=== PATIENT | male | born 2000 | race Caucasian/White ===

== ENCOUNTER 2020-12-20 16:47 | Emergency (ER) | payer OTHER, SELFPAY ==
--- NOTE | ~2020-12-20 | XR_ITS ---
EXAMINATION: XR CHEST CLINICAL INFORMATION: Chest pain. Chest breath. COMPARISON: None TECHNIQUE: Frontal view of the chest was obtained. 5:32 PM FINDINGS: No significant abnormality is noted involving the heart, lungs, mediastinum, bony thorax or soft tissues. XR/XR chest 1V IMPRESSION: Unremarkable examination.
[2020-12-20 17:06] VITALS: BP 125/86; PULSE 100; RESP 20; TEMP 36.7; O2SAT 97; BMI 18.2
--- NOTE | 2020-12-20 17:12 | ECG_ITS ---
Test Reason : CHEST PAIN Blood Pressure : / mmHG Vent. Rate : 095 BPM Atrial Rate : 095 BPM P-R Int : 152 ms QRS Dur : 080 ms QT Int : 336 ms P-R-T Axes : 067 077 051 degrees QTc Int : 422 ms Normal sinus rhythm Normal ECG No previous ECGs available Referred By: Generic ED Physician Electronically Signed By:MITRA DODGE MD
[2020-12-20 17:54] LABS: MANUAL DIFF FLAG NO
[2020-12-20 17:56] LABS: Basophils Percent Auto 0.3 % (0-2); Eosinophils Percent Auto 0.3 % (0-4); Hematocrit 42.1 % (42-52); Hemoglobin 14.1 g/dl (14.0-18.0); Imm Gran Abs Auto 0.06 X10*3/uL (0.00-0.03); Imm Gran Pct Auto 0.4 % (0.0-0.4); Lymphocytes Absolute Auto 1.9 X10*3/uL (1.2-4.9); Lymphocytes Percent Auto 12.5 % (20-40); Mean Corpuscular HGB Conc 33.5 g/dl (31.0-36.0); Mean Corpuscular Hemoglobin 30.6 pg (27.0-33.0); Mean Corpuscular Volume 91.3 fL (80-98); Mean Platelet Volume 8.9 fL (9.4-12.4); Monocytes Absolute Auto 1.4 X10*3/uL (0.1-1.2); Monocytes Percent Auto 8.9 % (2-11); Neutrophils Absolute Auto 12.1 X10*3/uL (2.0-8.3); Neutrophils Percent Auto 77.6 % (45-73); Platelet Count 269 X10*3/uL (160-400); Red Blood Count 4.61 X10*6/uL (4.60-5.80); White Blood Count 15.6 X10*3/uL (4.8-10.8)
[2020-12-20 18:13] LABS: Anion Gap 11 (12-20); Blood Urea Nitrogen 12 mg/dL (9-16); Carbon Dioxide 25 mmol/L (22-29); Chloride 107 mmol/L (96-108); Creatinine Clr Calc Pharmacy 112.8; Estimated Glomerular Filt Rate > 60; Glucose Random 113 mg/dL (60-115); Potassium 4.2 mmol/L (3.3-5.1); Sodium 139 mmol/L (135-145)
[2020-12-20 18:19] LABS: Troponin-I High Sensitivity < 3.5 ng/L (<3.5-35.0)
[2020-12-20 22:17] VITALS: BP 126/75; PULSE 87; RESP 15; O2SAT 99
--- NOTE | 2020-12-20 22:41 | ED.CHESTPAIN ---
HPI - Chest Pain General Chief Complaint: Chest Pain Stated Complaint: sob,chest pain Time Seen by Provider: 12/20/20 22:34 History of Present Illness HPI narrative: Patient is a 20 year old male presents today having chest pain. It is mid chest. It is worse with certain movement. Positive coughing. Patient had his coronavirus vaccine last month. No vomiting. No diaphoresis. No leg swelling. No history of blood clots. No history of diabetes, hypertension, [place]. No history of recreational drug use. The pain is mid chest is sharp. There is a constant component. It is worse with certain position. Related Data Allergies Allergy/AdvReac Type Severity Reaction Status Date / Time No Known Allergies Allergy Verified 12/20/20 17:05 Review of Systems Review of Systems: Positive chest pain. No shortness of breath. No diaphoresis. No leg swelling. No travel. Yes all other systems are reviewed and are negative [facility] Past Medical History Attestation statement: The following information was validated with the patient. Medical History ADHD Anxiety Depression Panic attack Physical Exam Vital Signs: Vital Signs: Last Vital Signs Temp 98.1 F 12/20/20 17:06 Pulse 87 12/20/20 22:17 Resp 15 12/20/20 22:17 BP 126/75 12/20/20 22:17 Pulse Ox 99 12/20/20 22:17 Body Mass Index 18.2 Appearance: Alert. Oriented X3. No acute distress. Eyes: Pupils equal, round and reactive to light. ENT: Pharynx normal. Neck: Normal inspection. Neck supple. No lymph nodes noted. No crepitus CVS: Normal heart rate and rhythm. Pulses normal. Normal S1 and S2 Respiratory: No respiratory distress. Breath sounds normal. No Wheezing. No rales Abdomen: Soft and nontender. No rigidity. No distention. good BS x4 Skin: Skin warm and dry. Normal skin color. Normal skin turgor. Extremities: No lower extremity edema. Neurovascular intact to all extremities. No Lacerations. No Rash Neuro: Oriented X 3. No motor deficit. No sensory deficit. Moving all extermities. No slurred speech MDM - Chest Pain MDM Narrative Medical decision making narrative: well-appearing no acute distress. Patient's cardiac enzymes negative. Hemoglobin is normal at 14.1. Kidney functions are normal. Chest x-ray showed no focal infiltrate. No pneumothorax. No rib fracture. Will discharge patient home. Close follow-up on an outpatient basis. Differential Diagnosis Differential diagnosis: Likely fracture of rib, pneumothorax, atypical chest pain, st elevation myocardial infarction, costochondritis and chest pain Medical Records Data Attestation: I reviewed the patient's medical records. Lab Data Attestation: I reviewed the patient's lab results. Result diagrams: 12/20/20 17:46 12/20/20 17:46 Labs: Lab Results 12/20/20 12/20/20 12/20/20 Range/Units 17:46 17:46 17:46 WBC 15.6 H (4.8-10.8) X10*3/uL RBC 4.61 (4.60-5.80) X10*6/uL Hgb 14.1 (14.0-18.0) g/dl Hct 42.1 (42-52) % MCV 91.3 (80-98) fL MCH 30.6 (27.0-33.0) pg MCHC 33.5 (31.0-36.0) g/dl RDW 13.0 (11.0-16.0) % Plt Count 269 (160-400) X10*3/uL MPV 8.9 L (9.4-12.4) fL Immature Gran % (Auto) 0.4 (0.0-0.4) % Neut % (Auto) 77.6 H (45-73) % Lymph % (Auto) 12.5 L (20-40) % Bowie % (Auto) 8.9 (2-11) % Eos % (Auto) 0.3 (0-4) % Baso % (Auto) 0.3 (0-2) % Lymph # (Auto) 1.9 (1.2-4.9) X10*3/uL Bowie # (Auto) 1.4 H (0.1-1.2) X10*3/uL Eos # (Auto) 0.0 (0.0-0.4) X10*3/uL Baso # (Auto) 0.0 (0.0-0.2) X10*3/uL Abs Immat Gran (auto) 0.06 H (0.00-0.03) X10*3/uL Absolute Neuts (auto) 12.1 H (2.0-8.3) X10*3/uL Absolute Nucleated RBC 0.000 (0.0-0.012) X10*3/uL Nucleated RBC % (auto) 0.0 (0.0-0.2) /100WBC Sodium 139 (135-145) mmol/L Potassium 4.2 (3.3-5.1) mmol/L Chloride 107 (96-108) mmol/L Carbon Dioxide 25 (22-29) mmol/L Anion Gap 11 L (12-20) BUN 12 (9-16) mg/dL Creatinine 0.87 (0.5-1.4) mg/dL Estim Creat Clear Calc 112.8 Estimated GFR > 60 Random Glucose 113 (60-115) mg/dL Calcium 9.0 (8.4-10.2) mg/dL Troponin I High Sens < 3.5 (<3.5-35.0) ng/L
== END 2020-12-20 23:00 | disposition home or self-care (01) ==
PROVIDERS: Emergency Provider Emergency Medicine Emergency Medical Services; PCP Pediatrics
DX: R07.9 Chest pain, unspecified (principal)
CPT/HCPCS: 36415; 71045; 80048; 84484; 85025; 93005; 99283; 99284

== ENCOUNTER 2023-03-11 19:37 | Emergency (ER) | payer OTHER, SELFPAY ==
[2023-03-11 19:43] VITALS: BP 150/93; PULSE 109; RESP 20; TEMP 36.8; O2SAT 97; BMI 25.6
--- NOTE | 2023-03-11 19:49 | ED_ITS ---
HPI - General Adult General Chief complaint: General Medical Stated complaint: vomiting blood / sob Time Seen by Provider: 03/11/23 21:27 Source: patient Mode of arrival: ambulatory Limitations: no limitations History of Present Illness HPI narrative: Patient drinks alcohol almost every day last few times after drinking starts vomiting initially clear and then bright red blood last vomiting was yesterday after drinking no melena has some epigastric pain while vomiting none now , no history of any ulcer Related Data Previous Rx's Medication Instructions Recorded omeprazole 40 mg capsule,delayed 40 mg PO DAILY #30 caps 03/11/23 release sucralfate 1 gram tablet 1 g PO BID #60 tabs 03/11/23 Allergies Allergy/AdvReac Type Severity Reaction Status Date / Time No Known Allergies Allergy Verified 03/11/23 19:42 Review of Systems 2 Review of Systems: Yes all other systems are reviewed and are negative PMF Past Medical History Medical History ADHD Depression Anxiety Panic attack Social History Social History Alcohol intake: current Alcohol intake frequency: 3 or more drinks per day Alcohol type: beer and hard liquor Use of substances other than those prescribed or required for medical reasons: No Any prior treatment program specific to substance use: No Advance Directives: No Advance Directives Information Provided: No Physical Exam ED Vital Signs: Vital Signs - 24 hr 03/11/23 19:43 03/11/23 21:45 Temperature 98.2 F 98.4 F Pulse Rate 109 H 84 Respiratory Rate 20 18 Blood Pressure 150/93 H 143/97 H Pulse Oximetry 97 97 Oxygen Delivery Method Room Air Room Air BMI result Body Mass Index 25.6 Appearance: Alert. Oriented X3. No acute distress. Eyes: No pallor ENT: Pharynx normal. Oral Mucosa moist Neck: Normal inspection. Neck supple. CVS: Normal heart rate and rhythm. Pulses normal. Respiratory: No respiratory distress. Equal air entry bilateral, no wheezing/rales/rhonchi Abdomen: Soft and nontender. Bowel sounds are present, no mass palpable, no CVA tenderness Skin: Skin warm and dry. Normal skin color. Normal skin turgor. Extremities: No lower extremity edema. No calf tenderness Neuro: Oriented X 3. Course Course Course Narrative: RmE: 22 yold male presents to the ED for vomitting up blood after drinking alcohol yesterday. patient last vomitted yesterday. Patient presently is asymptomatic. labs ordered Medications Administered Discontinued Medications Generic Name Dose Route Start Last Admin Trade Name Sai PRN Reason Stop Dose Admin Al Hydroxide/Mg Hydroxide 30 ml 03/11/23 21:34 03/11/23 21:52 Magnesium Hydrox/Alum Hydrox 30 Ml Oral.Susp PO 03/11/23 21:35 30 ml ONCE ONE Administration Omeprazole 40 mg 03/11/23 21:34 03/11/23 21:52 Omeprazole 40 Mg Capsule.Dr GASPAR 03/11/23 21:35 40 mg ONCE ONE Administration Medical Decision Making Lab Data 03/11/23 20:59 03/11/23 20:58 Labs: Lab Results 03/11/23 03/11/23 Range/Units 20:58 20:59 WBC 7.9 (4.8-10.8) X10*3/uL RBC 5.00 (4.60-5.80) X10*6/uL Hgb 15.4 (14.0-18.0) g/dl Hct 43.7 (42.0-52.0) % MCV 87.4 (80.0-98.0) fL MCH 30.8 (27.0-33.0) pg MCHC 35.2 (31.0-36.0) g/dl RDW 12.3 (11.0-16.0) % Plt Count 328 (160-400) X10*3/uL MPV 8.7 L (9.4-12.4) fL Immature Gran % (Auto) 0.4 (0.0-0.4) % Neut % (Auto) 51.3 (45-73) % Lymph % (Auto) 37.7 (20-40) % Wagoner % (Auto) 9.1 (2-11) % Eos % (Auto) 1.1 (0-4) % Baso % (Auto) 0.4 (0-2) % Lymph # (Auto) 3.0 (1.2-4.9) X10*3/uL Wagoner # (Auto) 0.7 (0.1-1.2) X10*3/uL Eos # (Auto) 0.1 (0.0-0.4) X10*3/uL Baso # (Auto) 0.0 (0.0-0.2) X10*3/uL Abs Immat Gran (auto) 0.03 (0.00-0.03) X10*3/uL Absolute Neuts (auto) 4.0 (2.0-8.3) x10*3/uL Absolute Nucleated RBC 0.000 (0.0-0.012) X10*3/uL Nucleated RBC % (auto) 0.0 (0.0-0.2) /100WBC Sodium 139 (135-145) mmol/L Potassium 3.7 (3.3-5.1) mmol/L Chloride 105 (96-108) mmol/L Carbon Dioxide 24 (22-29) mmol/L Anion Gap 14 (12-20) BUN 12 (9-16) mg/dL Creatinine 1.00 (0.5-1.4) mg/dL Estim Creat Clear Calc 122.3 Estimated GFR > 60 Random Glucose 114 (60-115) mg/dL Calcium 9.3 (8.4-10.2) mg/dL Total Bilirubin 0.3 (0.0-1.0) mg/dL AST 82 H (5-37) U/L ALT 113 H (0-40) U/L Alkaline Phosphatase 92 (39-117) U/L Total Protein 7.6 (6.5-8.0) g/dL Albumin 4.5 (3.5-5.0) g/dL Lipase 16 (8-78) U/L Discharge Plan Discharge Clinical Impression: Acute alcoholic gastritis Patient Disposition: Home, Self-Care Instructions: Gastritis (ED), Abuse of Alcohol (ED) Additional Instructions: Stop drinking alcohol Take Prilosec daily and sucralfate before meals as needed for acid reflux Prescriptions: New omeprazole 40 mg capsule,delayed release(DR/EC) 40 mg PO DAILY Qty: 30 0RF sucralfate 1 gram tablet 1 g PO BID Qty: 60 0RF Stand Alone Forms: Work/School Release Interventions: ED Discharge Assessment Last Done: 03/11/23 22:12 Discharge Date/Time: 03/11/23 22:00
[2023-03-11 21:06] LABS: MANUAL DIFF FLAG NO
[2023-03-11 21:07] LABS: Basophils Percent Auto 0.4 % (0-2); Eosinophils Absolute Auto 0.1 X10*3/uL (0.0-0.4); Eosinophils Percent Auto 1.1 % (0-4); Hematocrit 43.7 % (42.0-52.0); Hemoglobin 15.4 g/dl (14.0-18.0); Imm Gran Abs Auto 0.03 X10*3/uL (0.00-0.03); Imm Gran Pct Auto 0.4 % (0.0-0.4); Lymphocytes Percent Auto 37.7 % (20-40); Mean Corpuscular HGB Conc 35.2 g/dl (31.0-36.0); Mean Corpuscular Hemoglobin 30.8 pg (27.0-33.0); Mean Corpuscular Volume 87.4 fL (80.0-98.0); Mean Platelet Volume 8.7 fL (9.4-12.4); Monocytes Absolute Auto 0.7 X10*3/uL (0.1-1.2); Monocytes Percent Auto 9.1 % (2-11); Neutrophils Percent Auto 51.3 % (45-73); Platelet Count 328 X10*3/uL (160-400); Red Cell Distribution Width 12.3 % (11.0-16.0); White Blood Count 7.9 X10*3/uL (4.8-10.8)
[2023-03-11 21:21] LABS: Alanine Aminotransferase 113 U/L (0-40); Albumin Level 4.5 g/dL (3.5-5.0); Alkaline Phosphatase 92 U/L (39-117); Anion Gap 14 (12-20); Aspartate Amino Transferase 82 U/L (5-37); Bilirubin Total 0.3 mg/dL (0.0-1.0); Blood Urea Nitrogen 12 mg/dL (9-16); Calcium 9.3 mg/dL (8.4-10.2); Carbon Dioxide 24 mmol/L (22-29); Chloride 105 mmol/L (96-108); Creatinine Clr Calc Pharmacy 122.3; Estimated Glomerular Filt Rate > 60; Glucose Random 114 mg/dL (60-115); Lipase 16 U/L (8-78); Potassium 3.7 mmol/L (3.3-5.1); Sodium 139 mmol/L (135-145); Total Protein 7.6 g/dL (6.5-8.0)
[2023-03-11 21:45] VITALS: BP 143/97; PULSE 84; RESP 18; TEMP 36.9; O2SAT 97
[2023-03-11] MEDS: Omeprazole 40 MG CAPSULE.DR PO (21:52)
[2023-03-11] MEDS: Magnesium Hydrox/Alum Hydrox 30 ML ORAL.SUSP PO (21:52)
== END 2023-03-11 22:00 | disposition home or self-care (01) ==
PROVIDERS: Physician Assistant; Emergency Provider Internal Medicine; PCP Internal Medicine
DX: K29.20 Alcoholic gastritis without bleeding (principal); R11.2 Nausea with vomiting, unspecified; Z79.899 Other long term (current) drug therapy
CPT/HCPCS: 36415; 80053; 83690; 85025; 99283; 99284

== ENCOUNTER 2025-06-07 19:51 | Inpatient (IN) | payer OTHER, SELFPAY ==
--- NOTE | 2025-06-07 | ECG_ITS ---
Test Reason : tachycardia Blood Pressure : */* mmHG Vent. Rate : 113 BPM Atrial Rate : 113 BPM P-R Int : 160 ms QRS Dur : 90 ms QT Int : 332 ms P-R-T Axes : 51 68 39 degrees QTcB Int : 455 ms Sinus tachycardia Otherwise normal ECG When compared with ECG of 20-Dec-2020 17:42, No significant change was found Referred By: Generic ED Physician Electronically Signed By: Oskar Carney
--- NOTE | ~2025-06-07 | CT_ITS ---
CLINICAL HISTORY: new sz CT Cervical Spine WO Contrast COMPARISON: None provided FINDINGS: No acute fracture or malalignment. Soft tissues are normal. Lung apices are clear. IMPRESSION: No acute findings. This document has been electronically signed by: Mc Tran MD on 06/08/2025 01:00:25
--- NOTE | ~2025-06-07 | CT_ITS ---
CLINICAL HISTORY: abd pain after using motrin 800 mg q hr x 8 CT Abdomen and Pelvis W Contrast COMPARISON: None provided FINDINGS: Patchy infiltrates in the bilateral lower lobes. Diffusely hypodense liver consistent with hepatic steatosis. Hepatomegaly. Normal spleen. Normal kidneys. Normal adrenal glands. Normal pancreas. No visible cholelithiasis. No biliary dilation. No evidence of bowel obstruction or colitis. Normal appendix. Unremarkable bladder. No ascites. No pneumoperitoneum. No lymphadenopathy. No acute fracture. No abdominal aortic aneurysm. IMPRESSION: No acute findings in the abdomen/pelvis. Bilateral lower lobe infiltrates. Nonemergent/incidental findings above. This document has been electronically signed by: Mc Tran MD on 06/08/2025 01:06:17
--- NOTE | ~2025-06-07 | CT_ITS ---
CLINICAL HISTORY: sz CT Head WO Contrast COMPARISON: None provided FINDINGS: A small portion of the uppermost head is excluded from the study. No acute intracranial hemorrhage. No evidence of acute infarction. No mass-effect or midline shift. No hydrocephalus. Visualized paranasal sinuses are clear. The mastoid air cells are clear. The visible orbits are normal. No acute fracture. Unremarkable soft tissues. IMPRESSION: No acute intracranial findings. This document has been electronically signed by: Mc Tran MD on 06/08/2025 01:03:18
[2025-06-07 19:54] VITALS: BP 160/90; PULSE 140; O2SAT 95; BMI 27.3
[2025-06-07 19:56] VITALS: BP 136/85; PULSE 125; RESP 22; TEMP 36.6; O2SAT 86
[2025-06-07 20:04] VITALS: O2SAT 91
--- NOTE | 2025-06-07 20:06 | ED.SEIZURE ---
HPI - Seizure General Chief Complaint: Seizure Stated Complaint: possible seizure Time Seen by Provider: 06/07/25 20:06 History of Present Illness HPI Narrative: patient is a 24-year-old male with a long history of alcohol use. Patient elected to stop drinking abruptly yesterday because his grandmother . He had toothache in the started to take ibuprofen 800 mg every hour for 7 hours straight. Afterward at approximately 19:00 patient had what appears to be a tonic-clonic seizure. Mom noticed a seizure. Patient was not awake at the time. Patient was drooling. Had rhythmic shaking movements. Then was somewhat very tired for the next 5-10 minutes. Then came back. Patient admits to drinking alcohol. There is no chest pain there is no diaphoresis there is diffuse abdominal pain. Patient is from home. No fever no chills. No coughing or congestion or upper respiratory symptoms. No diaphoresis. Related Data Previous Rx's ?Medication ?Instructions ?Recorded omeprazole 40 mg capsule,delayed 40 mg PO DAILY #30 caps 03/11/23 release sucralfate 1 gram tablet 1 g PO BID #60 tabs 03/11/23 Allergies Allergy/AdvReac Type Severity Reaction Status Date / Time No Known Allergies Allergy Verified 06/07/25 19:56 Review of Systems Review of Systems: Positive abdominal pain positive seizure Yes all other systems are reviewed and are negative [facility] Past Medical History Attestation statement: The following information was validated with the patient. Medical History ADHD Depression Anxiety Panic attack Social History Social History Alcohol intake: current Alcohol intake frequency: 3 or more drinks per day Alcohol type: beer and hard liquor Advance Directives: No Advance Directives Information Provided: Yes Physical Exam Exam: Exam: Appearance: Alert. Oriented X3. No acute distress. Eyes: Pupils equal, round and reactive to light. ENT: Pharynx normal. Neck: Normal inspection. Neck supple. No lymph nodes noted. No crepitus CVS: tachycardic Respiratory: No respiratory distress. Breath sounds normal. No Wheezing. No rales Abdomen: Soft and nontender. No rigidity. No distention. good BS x4 Skin: Skin warm and dry. Normal skin color. Normal skin turgor. Extremities: No lower extremity edema. Neurovascular intact to all extremities. No Lacerations. No Rash Neuro: Oriented X 3. No motor deficit. No sensory deficit. Moving all extermities. No slurred speech Vital Signs: Vital Signs: Last Vital Signs Temp 98.1 F 06/08/25 00:46 Pulse 114 H 06/08/25 00:46 Resp 20 06/08/25 00:46 BP 148/83 H 06/08/25 00:46 Pulse Ox 97 06/08/25 00:46 O2 Del Method Room Air 06/08/25 00:46 O2 Flow Rate 3 06/07/25 22:06 BMI result Body Mass Index 27.3 Medications Administered Discontinued Medications Generic Name Dose Route Start Last Admin Trade Name Dougieq PRN Reason Stop Dose Admin Diazepam 10 mg 06/07/25 21:35 06/07/25 22:08 Diazepam 5 Mg Tablet PO 06/07/25 21:36 10 mg ONCE ONE Administration Sodium Chloride 1,000 mls @ 999 mls/hr 06/07/25 21:30 06/08/25 00:46 Ns IV 06/07/25 22:30 Infused .Q1H1M THU Infusion Iohexol 85 ml 06/08/25 00:22 06/08/25 00:22 Iohexol 350 Mg/Ml 100 Ml Infus..Btl IV 06/08/25 00:23 85 ml ONCE ONE Administration Medical Decision Making Medical Decision Making [facility] Narrative: patient's presented today with an episode of possible seizure after stopping drinking for about 24 hours. Patient decided to take Motrin all day including 800 mg of ibuprofen every hour for 7 hours. He took it because of his toothache. Patient was then noted to have a possible seizure episode. He was unresponsive his mom noted shaking like behavior at that time patient was drooling. Had a postictal state. There is no tongue bite there is no incontinence. CT scan of the head was done grossly there is no evidence of bleeding no fracture. Patient had taken large amount of Motrin then had abdominal pain. CT scan of the abdomen pelvis by my interpretation is grossly negative. There is no obstruction there is no perforation. Patient is hemoglobin is 15.6. IV fluid was given. Benzo was given for alcohol withdrawal. Will likely admit for alcohol withdrawal syndrome after CAT scan returned. Differential Diagnosis Differential Diagnoses: The differential diagnosis associated with the presentation includes Intracranial bleed electrolyte disturbance alcohol intoxication seizure alcohol withdrawal seizure Admission/Observation Consideration of admission/observation: Escalation of care including admission/observation considered Lab Data MDM Lab Attestation statement: I reviewed the patient's lab results. 06/07/25 20:27 06/07/25 20:27 Labs: Lab Results 06/07/25 06/07/25 Range/Units 20:27 20:29 WBC 9.6 (4.8-10.8) X10*3/uL RBC 5.06 (4.60-5.80) X10*6/uL Hgb 15.6 (14.0-18.0) g/dl Hct 44.6 (42.0-52.0) % MCV 88.1 (80.0-98.0) fL MCH 30.8 (27.0-33.0) pg MCHC 35.0 (31.0-36.0) g/dl RDW 12.7 (11.0-16.0) % Plt Count 255 (160-400) X10*3/uL MPV 9.0 L (9.4-12.4) fL Immature Gran % (Auto) 0.5 H (0.0-0.4) % Neut % (Auto) 77.0 H (45-73) % Lymph % (Auto) 12.9 L (20-40) % Tate % (Auto) 9.1 (2-11) % Eos % (Auto) 0.2 (0-4) % Baso % (Auto) 0.3 (0-2) % Lymph # (Auto) 1.2 (1.2-4.9) X10*3/uL Tate # (Auto) 0.9 (0.1-1.2) X10*3/uL Eos # (Auto) 0.0 (0.0-0.4) X10*3/uL Baso # (Auto) 0.0 (0.0-0.2) X10*3/uL Abs Immat Gran (auto) 0.05 H (0.00-0.03) X10*3/uL Absolute Neuts (auto) 7.4 (2.0-8.3) x10*3/uL Absolute Nucleated RBC 0.000 (0.0-0.012) X10*3/uL Nucleated RBC % (auto) 0.0 (0.0-0.2) /100WBC Sodium 135 (135-145) mmol/L Potassium 4.0 (3.3-5.1) mmol/L Chloride 100 (96-108) mmol/L Carbon Dioxide 21 L (22-29) mmol/L Anion Gap 18 (12-20) BUN 6 L (9-16) mg/dL Creatinine 0.81 (0.5-1.4) mg/dL Estim Creat Clear Calc 148.4 Estimated GFR > 60 Random Glucose 118 H (60-115) mg/dL Calcium 9.4 (8.4-10.2) mg/dL Magnesium 2.1 (1.6-2.6) mg/dL Total Bilirubin 1.1 H (0.0-1.0) mg/dL AST 52 H (5-37) U/L ALT 35 (0-40) U/L Alkaline Phosphatase 86 (39-117) U/L Total Protein 7.4 (6.5-8.0) g/dL Albumin 5.0 (3.5-5.0) g/dL Ethyl Alcohol < 10 mg/dL COVID-19 (TERESSA) Negative (Negative) COVID-19 Clin Com See Note Influenza Type A (LAKSHMI) Negative (Negative) Influenza Type B (LAKSHMI) Negative (Negative) Influenza A & B Note See Note Independent Interpretation I performed an independent interpretation of an: EKG ( sinus heart rate is 110 [place] QRS QTC within normal limits) and CT Scan ( CT head negative CTA abdomen pelvis negative) Radiology Impression Discussion of test interpretation with radiology: I have reviewed the radiologist's reading. Chronic Conditions long history of alcohol use Social Determinants Patient?s care significantly limited by Social Determinants of Health including: Problems related to primary support group Critical Care Time Critical Care Time Critical Care Time: Yes Total Critical Care Time: 40 Attestation: I have personally provided 40 minutes of critical care time exclusive of time spent on separately billable procedures. Time includes review of lab data, radiology results, discussion with consultants, and monitoring for potential decompensation. Interventions were performed as documented above Discharge Plan Discharge Clinical Impression: Alcohol withdrawal seizure Patient Disposition: Admitted As Inpatient Print Language: Indonesian
[2025-06-07 20:08] VITALS: BP 144/92; PULSE 128; RESP 22; O2SAT 91
[2025-06-07 20:09] VITALS: O2SAT 94
--- NOTE | 2025-06-07 20:12 | PC.NURSE ---
PALMIRA score 7, MD Mancuso aware.
--- NOTE | 2025-06-07 20:13 | PC.NURSE ---
Pt PEDRO LUIS from home after pt had an episode of unresponsiveness and a possible seizure witnessed by family. Pt has been having left sided tooth pain and today has been taking 800 mg ibuprofen every hour x 7 hours. On arrival pt is noted to be tachycardic and hypoxic at 86%, no reports of SOB. Pt placed on O2 via NC and EKG/labs ordered. Pt states he is a daily drinker, approximately 4-5 drinks daily. Pt states his last drink was yesterday. CIWA scale completed, score of 7. Mancuso aware of pt status and CIWA score.
--- NOTE | 2025-06-07 20:15 | PC.NURSE ---
20 g IV left hand from EMS
[2025-06-07 20:31] LABS: MANUAL DIFF FLAG NO
[2025-06-07 20:32] LABS: Hematocrit 44.6 % (42.0-52.0); Hemoglobin 15.6 g/dl (14.0-18.0); Imm Gran Abs Auto 0.05 X10*3/uL (0.00-0.03); Imm Gran Pct Auto 0.5 % (0.0-0.4); Lymphocytes Absolute Auto 1.2 X10*3/uL (1.2-4.9); Mean Corpuscular HGB Conc 35.0 g/dl (31.0-36.0); Mean Corpuscular Hemoglobin 30.8 pg (27.0-33.0); Mean Corpuscular Volume 88.1 fL (80.0-98.0); NRBC Abs Auto 0.000 X10*3/uL (0.0-0.012); NRBC Pct Auto 0.0 /100WBC (0.0-0.2); Platelet Count 255 X10*3/uL (160-400); Red Blood Count 5.06 X10*6/uL (4.60-5.80); White Blood Count 9.6 X10*3/uL (4.8-10.8)
[2025-06-07 20:53] LABS: Alanine Aminotransferase 35 U/L (0-40); Albumin Level 5.0 g/dL (3.5-5.0); Alkaline Phosphatase 86 U/L (39-117); Anion Gap 18 (12-20); Aspartate Amino Transferase 52 U/L (5-37); Blood Urea Nitrogen 6 mg/dL (9-16); Calcium 9.4 mg/dL (8.4-10.2); Carbon Dioxide 21 mmol/L (22-29); Chloride 100 mmol/L (96-108); Creatinine Clr Calc Pharmacy 148.4; Estimated Glomerular Filt Rate > 60; Magnesium 2.1 mg/dL (1.6-2.6); Potassium 4.0 mmol/L (3.3-5.1); Sodium 135 mmol/L (135-145); Total Protein 7.4 g/dL (6.5-8.0)
[2025-06-07 20:53] LABS: COVID-19 Test Negative (Negative); IDNOW Serial# 08D9AD1C; IDNOW Serial# 58CA691E; Influenza B2 Negative (Negative)
--- OUTSIDE RECORDS SUMMARY | 2025-06-07 21:11 | XMS_ITS ---
Author Organization Unknown ENCOUNTERS Encounter Performer Location Date Diagnosis Diagnosis Status Emergency [address] [id number] Pre Admit [address] [id number] Emergency [address] [address] [id number] [facility] [address] [address] [id number] [facility] *Note: Encounters from your own facility or health system may be excluded. Allergies, Adverse Reactions, Alerts Allergen Type Severity Identification Date Medications Name Date Quantity Days Supplied GPI Number
[2025-06-07 22:06] VITALS: BP 143/81; PULSE 113; RESP 22; TEMP 36.4; O2SAT 98
[2025-06-08] VITALS (8 sets, daily range): BP systolic 114–148; BP diastolic 60–91; PULSE 88–114; RESP 16–20; TEMP 36.4–36.7; O2SAT 96–100; BMI 27.3
[2025-06-08] MEDS: iohexoL 350 MG/ML 100 ML INFUS..BTL 85 ML IV (00:22)
[2025-06-08] MEDS: PHENobarbitaL sodium 130 MG/ML IM ONCE 364 MG IM (01:49)
--- NOTE | 2025-06-08 02:42 | P.HPHOSP_ITS ---
History of Present Illness Date of Service: 06/08/25 Chief Complaint: Alcohol withdrawal seizure A 24-year-old male with a history of ADHD, depression, anxiety, panic attacks, alcohol use disorder, and alcohol-induced gastritis presented to the emergency department following a witnessed seizure. The event was observed by his mother and described by his father at the bedside, who reported that the patient developed muscle rigidity and involuntary jerking movements of the extremities, with no response to verbal stimuli. Postictally, he was noted to be fatigued for 5?10 minutes. The seizure was associated with oral trauma and drooling, and he experienced a single episode of hematemesis without subsequent episodes or complaints of abdominal or epigastric pain. They didn't report head trauma, as he fell onto his bed during the event. The patient endorsed tremors, but noted that his headache and visual hallucinations had resolved; he denied photophobia. He has no prior history of alcohol-related seizures, ICU admissions, or intubation. His last alcohol use was two days prior to presentation, with reported consumption of 10?11 drinks per day (whiskey and beer) over the past 1.5 weeks, precipitated by a recent breakup from a 6?7 month relationship. He also reported severe dental pain (9/10) at the site of a wisdom tooth, for which he took 800 mg of Motrin every hour for 7?8 hours on Sunday, though he denied dental discomfort at the time of evaluation. On arrival to the ED, he was hypoxic with an oxygen saturation of 86% on room air, requiring transient supplemental oxygen via nasal cannula. His current oxygen saturation is 97% on room air. He was tachypneic, with a peak respiratory rate of 20, and tachycardic, with an initial heart rate of 128 bpm, now 114 bpm. He remained afebrile. In the emergency department, he received diazepam 10 mg orally, Phenobarbital 364 mg IM x 1 dose, 1 L normal saline bolus, phenobarbital, azithromycin, and ceftriaxone. He is being admitted for management of alcohol withdrawal complicated by seizure. Diagnostic studies: Laboratory studies: Within normal limits except for bicarb 21 total bilirubin 1.1, AST 55. Lactic acid 1. CBC normal limits. Alcohol level less than 10. Influenza a/B and COVID-19 negative. Imaging: CT head without contrast: Negative for acute intracranial pathology CT abdomen and pelvis with IV contrast: Hepatic steatosis. Hepatomegaly. No acute findings in the abdomen/pelvis. Bilateral lower lobe infiltrates. ECG: Sinus tachycardia at 113 beats per minute, QTC 455 ms, no acute ischemic changes noted Substance use: Tobacco: 4-5 cigarettes per day; Recreation is reducible cessation from cannabis use over a year History obtained from the patient and father who joined later during the encounter. Verbal consent was obtained from the patient. [facility] Medical History ADHD Depression Anxiety Panic attack Social History Alcohol intake: current Alcohol intake frequency: 3 or more drinks per day Alcohol type: beer and hard liquor Advance Directives: No Advance Directives Information Provided: Yes Meds Allergies Allergy/AdvReac Type Severity Reaction Status Date / Time No Known Allergies Allergy Verified 06/07/25 19:56 Active Medications: Current Medications Acetaminophen (Acetaminophen 325 Mg Tablet) 650 mg PO Q6H PRN PRN Reason: Pain, Mild 1-3,fever,headache Last Admin: 06/08/25 02:32 Dose: 650 mg Calcium Carbonate (Calcium Carbonate 750 Mg Tab.Chew) 750 mg PO Q4H PRN PRN Reason: Heartburn Azithromycin 500 mg/ Sodium (Chloride) 250 mls @ 125 mls/hr IV ONCE ONE Stop: 06/08/25 03:11 Last Admin: 06/08/25 02:32 Dose: 125 mls/hr Thiamine HCl 100 mg/ Sodium (Chloride) 101 mls @ 202 mls/hr IV DAILY [facility] Dextrose/Sodium Chloride (D5ns) 1,000 mls @ 100 mls/hr IVCONT .Q10H [facility] Stop: 06/08/25 12:44 Magnesium Hydroxide (Milk Of Magnesia 30 Ml Oral.Susp) 30 ml PO DAILY PRN PRN Reason: Constipation Melatonin (Melatonin 3 Mg Tablet) 3 mg PO BEDTIME PRN PRN Reason: Insomnia Nicotine (Nicotine 7 Mg Patch.Td24) 7 mg TRANSDERMA DAILY [facility] Ondansetron HCl (Ondansetron Hcl 4 Mg/2 Ml Vial) 4 mg IVPUSH Q8H PRN PRN Reason: Nausea and Vomiting Pantoprazole Sodium (Pantoprazole Sodium 40 Mg/10 Ml Vial) 40 mg IVPUSH BID@0630,1630 [facility] Pharmacy Consult (Consult Rx Etoh Phenob Im/Po) 1 each MISCELLANE ONCE PRN; Protocol PRN Reason: Consult order Phenobarbital (Phenobarbital 30 Mg Tablet) 60 mg PO BID [facility]; Protocol Stop: 06/10/25 09:01 Phenobarbital (Phenobarbital 30 Mg Tablet) 30 mg PO BID [facility]; Protocol Stop: 06/12/25 09:01 Phenobarbital (Phenobarbital 30 Mg Tablet) 30 mg PO DAILY [facility]; Protocol Stop: 06/14/25 09:01 Phenobarbital Sodium (Phenobarbital Sodium 130 Mg/Ml Vial Im Q3hx2) 260 mg IM Q3H THU; Protocol Stop: 06/08/25 08:01 Sodium Chloride (0.9 % Sodium Chloride Flush 3 Ml Syringe) 3 ml IVFLUSH QSHIFT THU Sodium Chloride (0.9 % Sodium Chloride Flush 3 Ml Syringe) 3 ml IVFLUSH QSHIFT [facility] Physical Exam 2 Vital Signs and Narrative: Vital Signs: Last Vital Signs Temp 98.1 F 06/08/25 00:46 Pulse 114 H 06/08/25 00:46 Resp 20 06/08/25 00:46 BP 148/83 H 06/08/25 00:46 Pulse Ox 97 06/08/25 00:46 O2 Del Method Room Air 06/08/25 00:46 O2 Flow Rate 3 06/07/25 22:06 BMI result Body Mass Index 27.3 Appearance: Alert.? Oriented X3.? No acute distress.?Cooperative Eyes: Pupils equal, round and reactive to light. CVS:?tachycardic Respiratory: No respiratory distress.? Breath sounds normal. No Wheezing. No rales Abdomen: Soft and nontender. No rigidity. No distention. good BS x4 Skin: Skin warm and dry.? Normal skin color.? Normal skin turgor. Extremities: Upper extremity tremors Neuro: Oriented X 3.? No motor deficit.? No sensory deficit. No slurred speech Results Labs 06/08/25 03:56 06/08/25 03:56 Labs: Laboratory Results - last 24 hr 06/07/25 06/07/25 06/08/25 20:27 20:29 01:32 MCV 88.1 MCH 30.8 MCHC 35.0 RDW 12.7 Plt Count 255 MPV 9.0 L Immature Gran % (Auto) 0.5 H Neut % (Auto) 77.0 H Lymph % (Auto) 12.9 L [place] % (Auto) 9.1 Eos % (Auto) 0.2 Baso % (Auto) 0.3 Lymph # (Auto) 1.2 [place] # (Auto) 0.9 Eos # (Auto) 0.0 Baso # (Auto) 0.0 Abs Immat Gran (auto) 0.05 H Absolute Neuts (auto) 7.4 Absolute Nucleated RBC 0.000 Nucleated RBC % (auto) 0.0 Anion Gap 18 Estim Creat Clear Calc 148.4 Estimated GFR > 60 Random Glucose 118 H Lactic Acid 1.0 Calcium 9.4 Magnesium 2.1 Total Bilirubin 1.1 H AST 52 H ALT 35 Alkaline Phosphatase 86 Total Protein 7.4 Albumin 5.0 Ethyl Alcohol < 10 COVID-19 (TERESSA) Negative COVID-19 Clin Com See Note Influenza Type A (LAKSHMI) Negative Influenza Type B (LAKSHMI) Negative Influenza A & B Note See Note Assessment and Plan (1) Alcohol withdrawal seizure: Status: Acute (2) Alcohol use disorder: Status: Acute (3) Hematemesis: Status: Acute Plan Alcohol withdrawal seizure due to alcohol use disorder Tobacco use disorder -Initiated [facility] [place] Phenobarbital Alcohol Withdrawal Protocol -Seizure and aspiration precautions in place -Discussed cessation of alcohol and tobacco use with the patient; he expressed interest in quitting both -Addiction Medicine consulted for further management and support -Wernicke encephalopathy prophylaxis: Thiamine 100 mg PO/IV daily for 3?5 days -Monitor CIWA scores -Nicotine replacement therapy -Antiemetic as needed Hematemesis possible alcohol-induced gastritis -PPI IV BID -IVF -NPO, pending GI evaluation -Monitor blood glucose q6hrs whilst NPO -Gastroenterology consulted Possible aspiration, CT abdo demonstrated bilateral lower lobe infiltrates, the patient is afebrile and no leukocytosis -Abx x 1 dose administered in the ED -Monitor fever curve closely Mild non-anion gap metabolic acidosis, likely attributable to alcohol-related bicarbonate loss. NSAID-induced renal tubular acidosis is less likely, given that the chloride level is within normal limits. -BMP pending Pain: Tylenol as needed Medication reconciliation pending Code staus: Full VTE: Mechanical prophylaxis only; chemoprophylaxis is contraindicated because of concerns about hematemesis. The patient requires a two-midnight hospital stay for monitoring and management of alcohol withdrawal seizures related to alcohol use disorder. Quality Stroke Does the patient have a stroke diagnosis?: No VTE Prior VTE?: No VTE Risk Level:: Medical - moderate - high VTE Device Contraindication: N/A - Device Ordered VTE Drug Contraindication: Treatment Not Indicated
[2025-06-08] MEDS: PHENobarbitaL sodium 130 MG/ML VIAL IM Q3Hx2 260 MG IM ×2 (04:32→07:42)
[2025-06-08 04:42] LABS: MANUAL DIFF FLAG NO
[2025-06-08 04:43] LABS: Hematocrit 38.1 % (42.0-52.0); Hemoglobin 13.0 g/dl (14.0-18.0); Imm Gran Abs Auto 0.06 X10*3/uL (0.00-0.03); Imm Gran Pct Auto 0.4 % (0.0-0.4); Lymphocytes Absolute Auto 1.3 X10*3/uL (1.2-4.9); Mean Corpuscular HGB Conc 34.1 g/dl (31.0-36.0); Mean Corpuscular Hemoglobin 30.6 pg (27.0-33.0); Mean Corpuscular Volume 89.6 fL (80.0-98.0); NRBC Abs Auto 0.000 X10*3/uL (0.0-0.012); NRBC Pct Auto 0.0 /100WBC (0.0-0.2); Platelet Count 230 X10*3/uL (160-400); Red Blood Count 4.25 X10*6/uL (4.60-5.80); White Blood Count 14.8 X10*3/uL (4.8-10.8)
[2025-06-08 04:59] LABS: Alanine Aminotransferase 27 U/L (0-40); Albumin Level 3.9 g/dL (3.5-5.0); Alkaline Phosphatase 66 U/L (39-117); Anion Gap 14 (12-20); Aspartate Amino Transferase 45 U/L (5-37); Blood Urea Nitrogen 6 mg/dL (9-16); Calcium 7.8 mg/dL (8.4-10.2); Carbon Dioxide 19 mmol/L (22-29); Chloride 108 mmol/L (96-108); Creatinine Clr Calc Pharmacy 179.5; Estimated Glomerular Filt Rate > 60; Potassium 3.5 mmol/L (3.3-5.1); Sodium 137 mmol/L (135-145); Total Protein 5.8 g/dL (6.5-8.0)
--- NOTE | 2025-06-08 05:56 | HO.NURTONUR ---
Pt is a 24 y.o. male coming in from home after an episode of unresponsiveness and possible seizure. Pt has been having tooth pain and reports yesterday he took 800 mg ibuprofen every hour for 8 hours. PMH ADHD, anxiety, depression. On first assessment, pt reports he is a daily drinker. Reports having 9-10 drinks per day. Last drink 06/06. Pt's initial CIWA score 7. Preceding scores have only been as high as 8. Phenobarb protocol initiated. Pt also received IV fluids. Noted to be tachycardic in the 120s for most of the overnight shift. Imaging negative for acute findings. Labs remarkable for elevated WBC. Covid/flu neg. VSS, a&ox4. 20 g left hand. D5NS running at 100 mL/hr.
[2025-06-08 06:15] LABS: Glucose, Whole Blood 105 mg/dL (60-115)
--- NOTE | 2025-06-08 09:01 | PHA.MEDREC ---
Addendum entered by Marcio Purcell RPh 06/08/25 10:44: MED REC REVIEWED BY [facility] ED Original Note: Pharmacy Consult ? Medication Reconciliation Pharmacy has completed the medication reconciliation. Spoke with pt and father at bedside and they were able to confirm pt medications. Pt only taking/alternating Tylenol 325mg as needed for pain and ibuprofen 200mg as needed for pain; pt and father states pt was taking 800mg of Ibuprofen Q1H for ~6-7 hours on Sunday and is the reason why pt is here today.
[2025-06-08] MEDS: Nicotine 7 MG PATCH.TD24 TRANSDERMA (09:24)
[2025-06-08] MEDS: Thiamine HCL 100 MG in 0.9 % Sodium Chloride 100 ML 202 MG IV (09:24)
[2025-06-08 10:44] LABS: Acetaminophen LAB < 3 mcg/mL (<30); Salicylate < 5.0 mg/dL (15-30)
[2025-06-08 10:46] LABS: Alanine Aminotransferase 27 U/L (0-40); Albumin Level 4.0 g/dL (3.5-5.0); Alkaline Phosphatase 69 U/L (39-117); Anion Gap 8 (12-20); Aspartate Amino Transferase 39 U/L (5-37); Blood Urea Nitrogen 4 mg/dL (9-16); Calcium 8.0 mg/dL (8.4-10.2); Carbon Dioxide 23 mmol/L (22-29); Chloride 109 mmol/L (96-108); Creatinine Clr Calc Pharmacy 176.8; Estimated Glomerular Filt Rate > 60; Potassium 3.4 mmol/L (3.3-5.1); Sodium 137 mmol/L (135-145); Total Protein 5.8 g/dL (6.5-8.0)
--- NOTE | 2025-06-08 12:30 | MHC.CM.PN ---
Patient lives in a house with his Mother and Brother and he required no services nor DME [employer]. Home self care is Patient's goal and CM has initiated and will follow for dc planning. PCP is Dr. Jessie Alas and Mother will transport at dc.
--- NOTE | 2025-06-08 13:43 | HO.ADDICT_ITS ---
History of Present Illness Date of Service: 06/08/2025 Chief Complaint: Seizures Reason for Consult: AUD Sources of Information: patient interviewed and chart reviewed Additional Sources of Information: father -at bedside HPI Narrative: Patient is a 24 year old male with AUD, who presented to [facility] ED following concern of withdrawal seizure at home Per admission note, he reported drinking at least 10 drinks daily (both whiskey and venessa) and stopped abruptly 2 days prior to ED admission (06/05) In ED he was tachycardiac and started on phenobarbital protocol. T/w met with with patient in room 12 of main ED. Patient sleeping soundly. Appearing comfortable HR high 90swhile asleep Father at bedside, expressing concern for patients excessive alcohol use Patient woke during conversation and stated that he was feeling better in terms of withdrawal sx Denied nausea, anxiety. mild tremor noted remainder of substance use history deferred until tomorrow, to allow patient to continue resting Medical Evaluation Reviewed: Yes Review of Systems Constitutional: Reports as per HPI and Reports no additional constitutional complaints Diagnostics Vital Signs (24Hr): Vital Signs - 24 hr 06/07/25 19:56 06/07/25 20:04 06/07/25 20:08 Temperature 97.9 F Pulse Rate 125 H 128 H Respiratory Rate 22 H 22 H Blood Pressure 136/85 144/92 H Pulse Oximetry 86 L 91 L 91 L Oxygen Delivery Method Room Air Nasal Cannula Nasal Cannula Oxygen Flow Rate 2 3 06/07/25 20:09 06/07/25 22:06 06/08/25 00:46 Temperature 97.6 F 98.1 F Pulse Rate 113 H 114 H Respiratory Rate 22 H 20 Blood Pressure 143/81 H 148/83 H Pulse Oximetry 94 98 97 Oxygen Delivery Method Nasal Cannula Nasal Cannula Room Air Oxygen Flow Rate 3 3 06/08/25 04:20 06/08/25 06:10 06/08/25 10:14 Temperature 98.0 F Pulse Rate 99 95 92 Respiratory Rate 16 16 19 Blood Pressure 124/62 116/60 114/72 Pulse Oximetry 97 97 99 Oxygen Delivery Method Room Air Room Air Oxygen Flow Rate BMI result Body Mass Index 27.3 Labs 06/08/25 03:56 06/08/25 10:12 Labs: Laboratory Results - last 48 hr 06/07/25 06/07/25 06/08/25 20:27 20:29 01:32 WBC 9.6 RBC 5.06 Hgb 15.6 Hct 44.6 MCV 88.1 MCH 30.8 MCHC 35.0 RDW 12.7 Plt Count 255 MPV 9.0 L Immature Gran % (Auto) 0.5 H Neut % (Auto) 77.0 H Lymph % (Auto) 12.9 L [place] % (Auto) 9.1 Eos % (Auto) 0.2 Baso % (Auto) 0.3 Lymph # (Auto) 1.2 [place] # (Auto) 0.9 Eos # (Auto) 0.0 Baso # (Auto) 0.0 Abs Immat Gran (auto) 0.05 H Absolute Neuts (auto) 7.4 Absolute Nucleated RBC 0.000 Nucleated RBC % (auto) 0.0 Sodium 135 Potassium 4.0 Chloride 100 Carbon Dioxide 21 L Anion Gap 18 BUN 6 L Creatinine 0.81 Estim Creat Clear Calc 148.4 Estimated GFR > 60 POC Glucose Random Glucose 118 H Lactic Acid 1.0 Calcium 9.4 Magnesium 2.1 Total Bilirubin 1.1 H AST 52 H ALT 35 Alkaline Phosphatase 86 Total Protein 7.4 Albumin 5.0 Salicylates Acetaminophen Ethyl Alcohol < 10 COVID-19 ([facility]) Negative COVID-19 Clin Com See Note Influenza Type A (LAKSHMI) Negative Influenza Type B ([facility]KSHMI) Negative Influenza A & B Note See Note 06/08/25 06/08/25 06/08/25 03:56 06:12 10:12 WBC 14.8 H RBC 4.25 L Hgb 13.0 L Hct 38.1 L MCV 89.6 MCH 30.6 MCHC 34.1 RDW 12.8 Plt Count 230 MPV 9.7 Immature Gran % (Auto) 0.4 Neut % (Auto) 82.5 H Lymph % (Auto) 8.4 L [place] % (Auto) 8.4 Eos % (Auto) 0.1 Baso % (Auto) 0.2 Lymph # (Auto) 1.3 [place] # (Auto) 1.3 H Eos # (Auto) 0.0 Baso # (Auto) 0.0 Abs Immat Gran (auto) 0.06 H Absolute Neuts (auto) 12.2 H Absolute Nucleated RBC 0.000 Nucleated RBC % (auto) 0.0 Sodium 137 137 Potassium 3.5 3.4 Chloride 108 109 H Carbon Dioxide 19 L 23 Anion Gap 14 8 L BUN 6 L 4 L Creatinine 0.67 0.68 Estim Creat Clear Calc 179.5 176.8 Estimated GFR > 60 > 60 POC Glucose 105 Random Glucose 96 105 Lactic Acid Calcium 7.8 L D 8.0 L Magnesium Total Bilirubin 1.0 1.1 H AST 45 H 39 H ALT 27 27 Alkaline Phosphatase 66 69 Total Protein 5.8 L 5.8 L Albumin 3.9 4.0 Salicylates < 5.0 L Acetaminophen < 3 Ethyl Alcohol COVID-19 (TERESSA) COVID-19 Clin Com Influenza Type A (LAKSHMI) Influenza Type B (LAKSHMI) Influenza A & B Note Mental Status Exam Mental Status Exam Level of Consciousness: Awake Patient Behavior: Appropriate Affect Description: Calm Speech Pattern: Clear Thought Process: Intact Thought Content: positive for Intact Judgement: Good Medications Medications Current Medications Acetaminophen (Acetaminophen 325 Mg Tablet) 650 mg PO Q6H PRN PRN Reason: Pain, Mild 1-3,fever,headache Last Admin: 06/08/25 02:32 Dose: 650 mg Calcium Carbonate (Calcium Carbonate 750 Mg Tab.Chew) 750 mg PO Q4H PRN PRN Reason: Heartburn Thiamine HCl 100 mg/ Sodium (Chloride) 101 mls @ 202 mls/hr IV DAILY [facility] Last Infusion: 06/08/25 10:25 Dose: Infused Magnesium Hydroxide (Milk Of Magnesia 30 Ml Oral.Susp) 30 ml PO DAILY PRN PRN Reason: Constipation Melatonin (Melatonin 3 Mg Tablet) 3 mg PO BEDTIME PRN PRN Reason: Insomnia Nicotine (Nicotine 7 Mg Patch.Td24) 7 mg TRANSDERMA DAILY [facility] Last Admin: 06/08/25 09:24 Dose: 7 mg Ondansetron HCl (Ondansetron Hcl 4 Mg/2 Ml Vial) 4 mg IVPUSH Q8H PRN PRN Reason: Nausea and Vomiting Pantoprazole Sodium (Pantoprazole Sodium 40 Mg/10 Ml Vial) 40 mg IVPUSH BID@0630,1630 [facility] Last Admin: 06/08/25 07:16 Dose: 40 mg Pharmacy Consult (Consult Rx Etoh Phenob Im/Po) 1 each MISCELLANE ONCE PRN; Protocol PRN Reason: Consult order Phenobarbital (Phenobarbital 30 Mg Tablet) 60 mg PO BID [facility]; Protocol Stop: 06/10/25 09:01 Phenobarbital (Phenobarbital 30 Mg Tablet) 30 mg PO BID [facility]; Protocol Stop: 06/12/25 09:01 Phenobarbital (Phenobarbital 30 Mg Tablet) 30 mg PO DAILY [facility]U; Protocol Stop: 06/14/25 09:01 Sodium Chloride (0.9 % Sodium Chloride Flush 3 Ml Syringe) 3 ml IVFLUSH QSHIFT [facility] Last Admin: 06/08/25 07:44 Dose: Not Given Allergies Allergies Allergy/AdvReac Type Severity Reaction Status Date / Time No Known Allergies Allergy Verified 06/07/25 19:56 Assessment & Plan Assessment & Plan (1) Alcohol use disorder: Status: Acute Code(s): F10.90 - Alcohol use, unspecified, uncomplicated Assessment and Plan: * acute withdrawal--phenobarbital taper in place -continue thiamine and folic acid * will follow up in AM to discuss goals related to alcohol use and possible treatment options for that * Provided supportive listening to father at bedside--will provide resources for family support in AM Total time managing care of this patient today __40__ minutes. PMFSH Past Medical History Medical History ADHD Depression Anxiety Panic attack Social History Social History Alcohol intake: current Alcohol intake frequency: 3 or more drinks per day Alcohol type: beer and hard liquor Patient Tobacco Use Status: Current everyday Tobacco user Advance Directives: No Advance Directives Information Provided: Yes Nutrition Risks: No Nutritional Risk service: No
[2025-06-08] MEDS: 0.9 % Sodium Chloride Flush 3 ML SYRINGE IVFLUSH (17:04)
--- NOTE | 2025-06-08 17:31 | PM.EVENT ---
Event Note Date of Service: 06/08/25 Event Note: Patient seen and examined by hospitalist team, seen and examined again Denies any new complaints no nausea vomiting Still anxious and tremulous Physical exam and assessment and plan as per H and P note. clear liquid diet, monitor H&H, GI evaluation pending. Time Spent With Patient Time: Total time managing care of this patient today ____ minutes.
[2025-06-08 18:24] LABS: Hematocrit 41.7 % (42.0-52.0); Hemoglobin 14.4 g/dl (14.0-18.0)
[2025-06-08 23:16] LABS: Glucose, Whole Blood 93 mg/dL (60-115)
[2025-06-09] MEDS: 0.9 % Sodium Chloride Flush 3 ML SYRINGE IVFLUSH (00:04)
[2025-06-09 03:06] VITALS: BP 142/78; PULSE 90; RESP 18; TEMP 36.5; O2SAT 98
[2025-06-09 06:15] LABS: Glucose, Whole Blood 93 mg/dL (60-115)
[2025-06-09 07:27] VITALS: BP 124/90; PULSE 92; RESP 16; TEMP 36.1; O2SAT 99
[2025-06-09] MEDS: Nicotine 7 MG PATCH.TD24 TRANSDERMA ×2 (07:51→16:12)
[2025-06-09] MEDS: Thiamine HCL 100 MG in 0.9 % Sodium Chloride 100 ML 202 MG IV (07:51)
[2025-06-09 09:22] LABS: Hematocrit 44.5 % (42.0-52.0); Hemoglobin 15.1 g/dl (14.0-18.0); Mean Corpuscular HGB Conc 33.9 g/dl (31.0-36.0); Mean Corpuscular Hemoglobin 31.0 pg (27.0-33.0); Mean Corpuscular Volume 91.4 fL (80.0-98.0); NRBC Abs Auto 0.000 X10*3/uL (0.0-0.012); NRBC Pct Auto 0.0 /100WBC (0.0-0.2); Platelet Count 223 X10*3/uL (160-400); Red Blood Count 4.87 X10*6/uL (4.60-5.80); White Blood Count 8.7 X10*3/uL (4.8-10.8)
[2025-06-09 10:02] LABS: Anion Gap 12 (12-20); Blood Urea Nitrogen 3 mg/dL (9-16); Calcium 9.1 mg/dL (8.4-10.2); Carbon Dioxide 24 mmol/L (22-29); Chloride 105 mmol/L (96-108); Creatinine Clr Calc Pharmacy 169.3; Estimated Glomerular Filt Rate > 60; Potassium 4.2 mmol/L (3.3-5.1); Sodium 137 mmol/L (135-145)
[2025-06-09 11:09] VITALS: BP 145/84; PULSE 84; RESP 16; TEMP 36.1; O2SAT 99
--- NOTE | 2025-06-09 14:31 | HO.PM.IMPN ---
Subjective Subjective Date of Service: 06/09/25 Interval History: alcohol withdrawals ?gib Review of Systems No new episode of seizure or any coffee-ground or GI bleed Still tremulous and anxious Physical Exam Exam: Exam: Appearance: Alert.? Oriented X3.? Tongue bite area seems to be improving, speaking fine . cvs: rrr, [id number] . res: clear to auscultation ,no rhonchii or wheezing abd: no rebound or guarding ,nt, bs present. ext pulses present , no cyanosis neuro: axo3 , nonfocal. Vital Signs: Vital Signs: Last Vital Signs Temp 97.0 F 06/09/25 11:09 Pulse 84 06/09/25 11:09 Resp 16 06/09/25 11:09 BP 145/84 H 06/09/25 11:09 Pulse Ox 99 06/09/25 11:09 O2 Del Method Room Air 06/09/25 11:09 O2 Flow Rate 3 06/07/25 22:06 BMI result Body Mass Index 27.3 Objective Data Active Medications Acetaminophen (Acetaminophen 325 Mg Tablet) 650 mg PO Q6H PRN PRN Reason: Pain, Mild 1-3,fever,headache Last Admin: 06/08/25 20:59 Dose: 650 mg Documented By: LOKESH Calcium Carbonate (Calcium Carbonate 750 Mg Tab.Chew) 750 mg PO Q4H PRN PRN Reason: Heartburn Thiamine HCl 100 mg/ Sodium (Chloride) 101 mls @ 202 mls/hr IV DAILY [facility]S [facility] 234 BEDS AT THE [facility] Last Infusion: 06/09/25 08:26 Dose: Infused Documented By: CAROLA Magnesium Hydroxide (Milk Of Magnesia 30 Ml Oral.Susp) 30 ml PO DAILY PRN PRN Reason: Constipation Melatonin (Melatonin 3 Mg Tablet) 3 mg PO BEDTIME PRN PRN Reason: Insomnia Nicotine (Nicotine 7 Mg Patch.Td24) 7 mg TRANSDERMA DAILY [facility]S [facility]CLUDE 234 BEDS AT THE [facility] Last Admin: 06/09/25 07:51 Dose: 7 mg Documented By: SHOAIB Ondansetron HCl (Ondansetron Hcl 4 Mg/2 Ml Vial) 4 mg IVPUSH Q8H PRN PRN Reason: Nausea and Vomiting Pantoprazole Sodium (Pantoprazole Sodium 40 Mg/10 Ml Vial) 40 mg IVPUSH BID@0630,1630 [facility]S [facility]CLUDE 234 BEDS AT THE [facility] Last Admin: 06/09/25 06:09 Dose: 40 mg Documented By: LENNIE Pharmacy Consult (Consult Rx Etoh Phenob Im/Po) 1 each MISCELLANE ONCE PRN; Protocol PRN Reason: Consult order Phenobarbital (Phenobarbital 30 Mg Tablet) 60 mg PO BID [facility] 234 BEDS AT [facility]; Protocol Stop: 06/10/25 09:01 Last Admin: 06/09/25 07:50 Dose: 60 mg Documented By: SHOAIB Phenobarbital (Phenobarbital 30 Mg Tablet) 30 mg PO BID [facility] 234 BEDS AT THE [facility]; Protocol Stop: 06/12/25 09:01 Phenobarbital (Phenobarbital 30 Mg Tablet) 30 mg PO DAILY [facility] 234 BEDS AT [facility]; Protocol Stop: 06/14/25 09:01 Sodium Chloride (0.9 % Sodium Chloride Flush 3 Ml Syringe) 3 ml IVFLUSH QSHIFT [facility]S [facility]CLUDE 234 BEDS AT THE [facility] Last Admin: 06/09/25 08:27 Dose: Not Given Documented By: CAROLA Non-Admin Reason: Previously Administered Labs 06/09/25 09:11 06/09/25 09:11 Labs: Laboratory Results - last 24 hr 06/08/25 06/09/25 06/09/25 23:12 06:08 09:11 MCV 91.4 MCH 31.0 MCHC 33.9 RDW 12.8 Plt Count 223 MPV 9.3 L Absolute Nucleated RBC 0.000 Nucleated RBC % (auto) 0.0 Anion Gap 12 Estim Creat Clear Calc 169.3 Estimated GFR > 60 POC Glucose 93 93 Random Glucose 118 H Calcium 9.1 D Microbiology Microbiology Results: Microbiology 06/08/25 01:32 Blood Culture - Preliminary Blood - Venous No growth after 24 hours. 06/08/25 01:32 Blood Culture - Preliminary Blood - Venous No growth after 24 hours. Assessment and Plan Plan Alcohol withdrawal seizure due to alcohol use disorder Tobacco use disorder Initiated [facility] Phenobarbital Alcohol Withdrawal Protocol -Seizure and aspiration precautions in place -Discussed cessation of alcohol and tobacco use with the patient; he expressed interest in quitting both -Addiction Medicine consulted for further management and support -Wernicke encephalopathy prophylaxis: Thiamine 100 mg PO/IV daily for 3?5 days -Monitor CIWA scores -Nicotine replacement therapy -Antiemetic as needed Hematemesis possible alcohol-induced gastritis -PPI IV BID -IVF -NPO, pending GI evaluation -Monitor blood glucose q6hrs whilst NPO -Gastroenterology consulted Possible aspiration, CT abdo demonstrated bilateral lower lobe infiltrates, the patient is afebrile and no leukocytosis -Abx x 1 dose administered in the ED -Monitor fever curve closely Mild non-anion gap metabolic acidosis, likely attributable to alcohol-related bicarbonate loss. NSAID-induced renal tubular acidosis is less likely, given that the chloride level is within normal limits. -BMP pending Pain: Tylenol as needed Medication reconciliation pending Code staus: Full VTE: Mechanical prophylaxis only; chemoprophylaxis is contraindicated because of concerns about hematemesis. The patient requires a two-midnight hospital stay for monitoring and management of alcohol withdrawal seizures related to alcohol use disorder. Quality Stroke Does the patient have a stroke diagnosis?: No VTE Prior VTE?: No VTE Risk Level:: Medical - moderate - high VTE Device Contraindication: N/A - Device Ordered VTE Drug Contraindication: Treatment Not Indicated
--- NOTE | 2025-06-09 14:56 | HO.ADDICTPRO ---
Subjective Subjective Date of Service: 06/09/25 Reason For Visit: Seizures Interim History: Patient seen in follow up for AUD with acute withdrawal Seen in room 462. He is awake, alert, pleasant and engaged in interview. Seen by anthropology instructor --notes reviewed Patient expressed interest in starting naltrexone Reviewed medication, dosing, side effects and goals of treatment In terms of withdrawal--he reports feeling 100% better No tremor noted, appearing comfortable Review of Systems Acute medical concerns: Yes Review of Systems Constitutional: Reports as per HPI and Reports no additional constitutional complaints Mental Status Exam Mental Status Exam Level of Consciousness: Awake, Appropriate and Alert Patient Behavior: Appropriate and Talkative Mood Description: Calm Affect Description: Calm Speech Pattern: Clear Thought Process: Intact Thought Content: positive for Intact Judgement: Good Diagnostics Vital Signs (24Hr): Vital Signs - 24 hr 06/08/25 18:37 06/08/25 19:21 06/08/25 23:08 Temperature 97.6 F 97.6 F 98.1 F Pulse Rate 95 97 93 Respiratory Rate 16 17 16 Blood Pressure 143/80 H 137/91 H 128/85 Pulse Oximetry 98 98 100 Oxygen Delivery Method Room Air Room Air Room Air 06/09/25 03:06 06/09/25 07:27 06/09/25 11:09 Temperature 97.7 F 97.0 F 97.0 F Pulse Rate 90 92 84 Respiratory Rate 18 16 16 Blood Pressure 142/78 H 124/90 H 145/84 H Pulse Oximetry 98 99 99 Oxygen Delivery Method Room Air Room Air Room Air BMI result Body Mass Index 27.3 Labs 06/09/25 09:11 06/09/25 09:11 Labs: Laboratory Results - last 48 hr 06/07/25 06/07/25 06/08/25 20:27 20:29 01:32 WBC 9.6 RBC 5.06 Hgb 15.6 Hct 44.6 MCV 88.1 MCH 30.8 MCHC 35.0 RDW 12.7 Plt Count 255 MPV 9.0 L Immature Gran % (Auto) 0.5 H Neut % (Auto) 77.0 H Lymph % (Auto) 12.9 L [place] % (Auto) 9.1 Eos % (Auto) 0.2 Baso % (Auto) 0.3 Lymph # (Auto) 1.2 [place] # (Auto) 0.9 Eos # (Auto) 0.0 Baso # (Auto) 0.0 Abs Immat Gran (auto) 0.05 H Absolute Neuts (auto) 7.4 Absolute Nucleated RBC 0.000 Nucleated RBC % (auto) 0.0 Sodium 135 Potassium 4.0 Chloride 100 Carbon Dioxide 21 L Anion Gap 18 BUN 6 L Creatinine 0.81 Estim Creat Clear Calc 148.4 Estimated GFR > 60 POC Glucose Random Glucose 118 H Lactic Acid 1.0 Calcium 9.4 Magnesium 2.1 Total Bilirubin 1.1 H AST 52 H ALT 35 Alkaline Phosphatase 86 Total Protein 7.4 Albumin 5.0 Salicylates Acetaminophen Ethyl Alcohol < 10 COVID-19 (TERESSA) Negative COVID-19 Clin Com See Note Influenza Type A (LAKSHMI) Negative Influenza Type B (LAKSHMI) Negative Influenza A & B Note See Note 06/08/25 06/08/25 06/08/25 03:56 06:12 10:12 WBC 14.8 H RBC 4.25 L Hgb 13.0 L Hct 38.1 L MCV 89.6 MCH 30.6 MCHC 34.1 RDW 12.8 Plt Count 230 MPV 9.7 Immature Gran % (Auto) 0.4 Neut % (Auto) 82.5 H Lymph % (Auto) 8.4 L [place] % (Auto) 8.4 Eos % (Auto) 0.1 Baso % (Auto) 0.2 Lymph # (Auto) 1.3 [place] # (Auto) 1.3 H Eos # (Auto) 0.0 Baso # (Auto) 0.0 Abs Immat Gran (auto) 0.06 H Absolute Neuts (auto) 12.2 H Absolute Nucleated RBC 0.000 Nucleated RBC % (auto) 0.0 Sodium 137 137 Potassium 3.5 3.4 Chloride 108 109 H Carbon Dioxide 19 L 23 Anion Gap 14 8 L BUN 6 L 4 L Creatinine 0.67 0.68 Estim Creat Clear Calc 179.5 176.8 Estimated GFR > 60 > 60 POC Glucose 105 Random Glucose 96 105 Lactic Acid Calcium 7.8 L D 8.0 L Magnesium Total Bilirubin 1.0 1.1 H AST 45 H 39 H ALT 27 27 Alkaline Phosphatase 66 69 Total Protein 5.8 L 5.8 L Albumin 3.9 4.0 Salicylates < 5.0 L Acetaminophen < 3 Ethyl Alcohol COVID-19 (TERESSA) COVID-19 Clin Com Influenza Type A (LAKSHMI) Influenza Type B (LAKSHMI) Influenza A & B Note 06/08/25 06/08/25 06/09/25 18:17 23:12 06:08 WBC RBC Hgb 14.4 Hct 41.7 L MCV MCH MCHC RDW Plt Count MPV Immature Gran % (Auto) Neut % (Auto) Lymph % (Auto) [place] % (Auto) Eos % (Auto) Baso % (Auto) Lymph # (Auto) [place] # (Auto) Eos # (Auto) Baso # (Auto) Abs Immat Gran (auto) Absolute Neuts (auto) Absolute Nucleated RBC Nucleated RBC % (auto) Sodium Potassium Chloride Carbon Dioxide Anion Gap BUN Creatinine Estim Creat Clear Calc Estimated GFR POC Glucose 93 93 Random Glucose Lactic Acid Calcium Magnesium Total Bilirubin AST ALT Alkaline Phosphatase Total Protein Albumin Salicylates Acetaminophen Ethyl Alcohol COVID-19 (TERESSA) COVID-19 Clin Com Influenza Type A (LAKSHMI) Influenza Type B (LAKSHMI) Influenza A & B Note 06/09/25 09:11 WBC 8.7 RBC 4.87 Hgb 15.1 Hct 44.5 MCV 91.4 MCH 31.0 MCHC 33.9 RDW 12.8 Plt Count 223 MPV 9.3 L Immature Gran % (Auto) Neut % (Auto) Lymph % (Auto) [place] % (Auto) Eos % (Auto) Baso % (Auto) Lymph # (Auto) [place] # (Auto) Eos # (Auto) Baso # (Auto) Abs Immat Gran (auto) Absolute Neuts (auto) Absolute Nucleated RBC 0.000 Nucleated RBC % (auto) 0.0 Sodium 137 Potassium 4.2 D Chloride 105 Carbon Dioxide 24 Anion Gap 12 BUN 3 L Creatinine 0.71 Estim Creat Clear Calc 169.3 Estimated GFR > 60 POC Glucose Random Glucose 118 H Lactic Acid Calcium 9.1 D Magnesium Total Bilirubin AST ALT Alkaline Phosphatase Total Protein Albumin Salicylates Acetaminophen Ethyl Alcohol COVID-19 (TERESSA) COVID-19 Clin Com Influenza Type A (LAKSHMI) Influenza Type B (LAKSHMI) Influenza A & B Note Medications Medications Current Medications Acetaminophen (Acetaminophen 325 Mg Tablet) 650 mg PO Q6H PRN PRN Reason: Pain, Mild 1-3,fever,headache Last Admin: 06/08/25 20:59 Dose: 650 mg Calcium Carbonate (Calcium Carbonate 750 Mg Tab.Chew) 750 mg PO Q4H PRN PRN Reason: Heartburn Thiamine HCl 100 mg/ Sodium (Chloride) 101 mls @ 202 mls/hr IV DAILY [facility] Last Infusion: 06/09/25 08:26 Dose: Infused Magnesium Hydroxide (Milk Of Magnesia 30 Ml Oral.Susp) 30 ml PO DAILY PRN PRN Reason: Constipation Melatonin (Melatonin 3 Mg Tablet) 3 mg PO BEDTIME PRN PRN Reason: Insomnia Nicotine (Nicotine 7 Mg Patch.Td24) 7 mg TRANSDERMA DAILY [facility] Last Admin: 06/09/25 07:51 Dose: 7 mg Ondansetron HCl (Ondansetron Hcl 4 Mg/2 Ml Vial) 4 mg IVPUSH Q8H PRN PRN Reason: Nausea and Vomiting Pantoprazole Sodium (Pantoprazole Sodium 40 Mg/10 Ml Vial) 40 mg IVPUSH BID@0630,1630 [facility] Last Admin: 06/09/25 06:09 Dose: 40 mg Pharmacy Consult (Consult Rx Etoh Phenob Im/Po) 1 each MISCELLANE ONCE PRN; Protocol PRN Reason: Consult order Phenobarbital (Phenobarbital 30 Mg Tablet) 60 mg PO BID [facility]; Protocol Stop: 06/10/25 09:01 Last Admin: 06/09/25 07:50 Dose: 60 mg Phenobarbital (Phenobarbital 30 Mg Tablet) 30 mg PO BID [facility]; Protocol Stop: 06/12/25 09:01 Phenobarbital (Phenobarbital 30 Mg Tablet) 30 mg PO DAILY [facility]; Protocol Stop: 06/14/25 09:01 Sodium Chloride (0.9 % Sodium Chloride Flush 3 Ml Syringe) 3 ml IVFLUSH QSHIFT [facility] Last Admin: 06/09/25 08:27 Dose: Not Given Allergies Allergies Allergy/AdvReac Type Severity Reaction Status Date / Time No Known Allergies Allergy Verified 06/07/25 19:56 Assessment & Plan Assessment & Plan (1) Alcohol use disorder: Status: Acute Code(s): F10.90 - Alcohol use, unspecified, uncomplicated Assessment and Plan: withdrawal much improved agreeable to naltrexone trial --25mg QD X3 days then increase to 50mg QD anthropology instructor to coordinate AUD outpt treatment follow up Total time managing care of this patient today _20___ minutes.
[2025-06-09 15:22] VITALS: BP 143/86; PULSE 98; RESP 16; TEMP 36.1; O2SAT 98
--- NOTE | 2025-06-09 15:42 | P.CNGI_ITS ---
History of Present Illness Data of Consult Service Date: 06/09/25 Requesting physician: Aubrey aVldez Primary Care Provider: Jessie Alas MD HPI Reason for consult: Hematemesis 24-year-old gentleman with medical history of alcohol use disorder, who presented to the hospital 06/07 for alcohol withdrawal seizure. Gastroenterology has been consulted for 1 episode of coffee-ground emesis. Patient evaluated at bedside and reports heavy etOH use x 2-3 weeks to cope with a break up. Was drinking up to 15 nips a day. Tried to quit at home over the weekend which did not go well and he ended up having a witnessed siezure - mother was present (who is an RN). He was also noted to throw up reddish emesis. He currently reports no abd pain, N,V. No further hematemesis or melena. CBC reflects the same. He also notes that he had been taking 8-10 pills of ibuprofen per day for tooth ache. He has met with addiction medicine team and plan is to start Naltrexone. Review of Systems 2 Review of Systems: Yes all other systems are reviewed and are negative PMFSH Past Medical History Medical History ADHD Depression Anxiety Panic attack Social History Social History Household Members: Family Housing: House Alcohol intake: current Alcohol intake frequency: 3 or more drinks per day Alcohol type: beer and hard liquor Patient Tobacco Use Status: Current everyday Tobacco user Tobacco use type: Cigarette Cigarettes Per Day: 6 Years Smoked: 7 service: No Meds Allergies Allergy/AdvReac Type Severity Reaction Status Date / Time No Known Allergies Allergy Verified 06/07/25 19:56 Active Medications: Current Medications Acetaminophen (Acetaminophen 325 Mg Tablet) 650 mg PO Q6H PRN PRN Reason: Pain, Mild 1-3,fever,headache Last Admin: 06/08/25 20:59 Dose: 650 mg Calcium Carbonate (Calcium Carbonate 750 Mg Tab.Chew) 750 mg PO Q4H PRN PRN Reason: Heartburn Thiamine HCl 100 mg/ Sodium (Chloride) 101 mls @ 202 mls/hr IV DAILY [facility] Last Infusion: 06/09/25 08:26 Dose: Infused Magnesium Hydroxide (Milk Of Magnesia 30 Ml Oral.Susp) 30 ml PO DAILY PRN PRN Reason: Constipation Melatonin (Melatonin 3 Mg Tablet) 3 mg PO BEDTIME PRN PRN Reason: Insomnia Naltrexone HCl (Naltrexone Hcl 50 Mg Tablet) 25 mg PO DAILY [facility] Nicotine (Nicotine 7 Mg Patch.Td24) 7 mg TRANSDERMA DAILY [facility] Last Admin: 06/09/25 07:51 Dose: 7 mg Ondansetron HCl (Ondansetron Hcl 4 Mg/2 Ml Vial) 4 mg IVPUSH Q8H PRN PRN Reason: Nausea and Vomiting Pantoprazole Sodium (Pantoprazole Sodium 40 Mg/10 Ml Vial) 40 mg IVPUSH BID@0630,1630 [facility] Last Admin: 06/09/25 06:09 Dose: 40 mg Pharmacy Consult (Consult Rx Etoh Phenob Im/Po) 1 each MISCELLANE ONCE PRN; Protocol PRN Reason: Consult order Phenobarbital (Phenobarbital 30 Mg Tablet) 60 mg PO BID [facility]; Protocol Stop: 06/10/25 09:01 Last Admin: 06/09/25 07:50 Dose: 60 mg Phenobarbital (Phenobarbital 30 Mg Tablet) 30 mg PO BID [facility]; Protocol Stop: 06/12/25 09:01 Phenobarbital (Phenobarbital 30 Mg Tablet) 30 mg PO DAILY [facility]; Protocol Stop: 06/14/25 09:01 Sodium Chloride (0.9 % Sodium Chloride Flush 3 Ml Syringe) [facility] Last Admin: 06/09/25 08:27 Dose: Not Given Physical Exam 2 Exam: Exam: Young male No apparent distress Nonicteric Abdomen soft, nondistended Alert and oriented x3, normal gait Vital Signs: Vital Signs: Last Vital Signs Temp 97.0 F 06/09/25 15:22 Pulse 98 06/09/25 15:22 Resp 16 06/09/25 15:22 BP 143/86 H 06/09/25 15:22 Pulse Ox 98 06/09/25 15:22 O2 Del Method Room Air 06/09/25 15:22 O2 Flow Rate 3 06/07/25 22:06 BMI result Body Mass Index 27.3 Results Labs 06/09/25 09:11 06/09/25 09:11 Labs: Short CBC 06/08/25 06/09/25 Range/Units 18:17 09:11 WBC 8.7 (4.8-10.8) X10*3/uL Hgb 14.4 15.1 (14.0-18.0) g/dl Hct 41.7 L 44.5 (42.0-52.0) % Plt Count 223 (160-400) X10*3/uL [facility] 06/09/25 09:11 Sodium 137 Potassium 4.2 D Chloride 105 Carbon Dioxide 24 BUN 3 L Creatinine 0.71 Calcium 9.1 D Microbiology Microbiology Results: Microbiology 06/08/25 01:32 Blood - Venous Blood Culture - Preliminary No growth after 24 hours. 06/08/25 01:32 Blood - Venous Blood Culture - Preliminary No growth after 24 hours. Assessment and Plan (1) Alcohol use disorder: Status: Acute (2) Alcohol withdrawal seizure: Status: Acute (3) Hematemesis: Status: Acute Plan One time episode of BRB emesis which was self limiting. Ddx include gastritis/esophagitis, PUD, MWT. Currently no evidence of ongoing GIB and limited role of endoscopic evaluation at this time. Plan: - Diet as tolerated - Omeprazole 20 once daily x 8-12 weeks - folic acid and MV daily x 2-3 months - Strict etOH abstinence - Follow up with addiction medicine as planned thank you for allowing me to participate in his care. Please do not hesitate to reach out for questions or concerns. Procedures Date of Service Date of Service: 06/09/25
--- NOTE | 2025-06-09 16:31 | P.DS_ITS ---
DS: Providers Provider Date of admission: 06/08/25 01:29 Date of discharge: 06/09/25 Primary care physician: Jessie Alas MD Consults: 06/08/25 01:57 Consult to Gastroenterology Routine Consulting Provider: [facility] Reason for consultation: hematemesis 06/08/25 02:09 Addiction Medicine Provider Routine Consulting Provider: Addiction Covering Reason for consultation: ETOH use disorder Attending physician on discharge: Aubrey Valdez Discharging clinician: Aubrey Valdez DS: Diagnosis Discharge Diagnosis (1) Alcohol use disorder: Status: Acute (2) Alcohol withdrawal seizure: Status: Acute (3) Hematemesis: Status: Acute DS: Summary Hospital Course Hospital Course: HPI:24-year-old male with a history of ADHD, depression, anxiety, panic attacks, alcohol use disorder, and alcohol-induced gastritis presented to the emergency department following a witnessed seizure. The event was observed by his mother and described by his father at the bedside, who reported that the patient developed muscle rigidity and involuntary jerking movements of the extremities, with no response to verbal stimuli. Postictally, he was noted to be fatigued for 5?10 minutes. The seizure was associated with oral trauma and drooling, and he experienced a single episode of hematemesis without subsequent episodes or complaints of abdominal or epigastric pain. They didn't report head trauma, as he fell onto his bed during the event. The patient endorsed tremors, but noted that his headache and visual hallucinations had resolved; he denied photophobia. He has no prior history of alcohol-related seizures, ICU admissions, or intubation. His last alcohol use was two days prior to presentation, with reported consumption of 10?11 drinks per day (whiskey and beer) over the past 1.5 weeks, precipitated by a recent breakup from a 6?7 month relationship. He also reported severe dental pain (9/10) at the site of a wisdom tooth, for which he took 800 mg of Motrin every hour for 7?8 hours on Sunday, though he denied dental discomfort at the time of evaluation. On arrival to the ED, he was hypoxic with an oxygen saturation of 86% on room air, requiring transient supplemental oxygen via nasal cannula. His current oxygen saturation is 97% on room air. He was tachypneic, with a peak respiratory rate of 20, and tachycardic, with an initial heart rate of 128 bpm, now 114 bpm. He remained afebrile. In the emergency department, he received diazepam 10 mg orally, Phenobarbital 364 mg IM x 1 dose, 1 L normal saline bolus, phenobarbital, azithromycin, and ceftriaxone. He is being admitted for management of alcohol withdrawal complicated by seizure. Hospital course: Patient came to the hospital because of alcohol withdrawal seizure, also took excessive ibuprofen, had hematemesis: Subsequently patient was started on IV fl uid, H&H monitor, IV ppi, phenobarb protocol, thiamine, folic acid. ct head and cervical spine CT negative, CTA abdomen,No acute findings in the abdomen/pelvis.Bilateral lower lobe infiltrates, mild leukocytosis- received antibiotics in ed .blood culture sent . Tylenol and ibuprofen levels are checked and discussed with the poison control- no new recommendations, avoid Tylenol and ibuprofen use until seen by PCP. With the above management patient seems to be improved significantly, mild elevated LFTs in the setting of alcohol use. Monitor LFT outpatient. Agree advised to abstain from alcohol. plan: Patient was strongly advised to abstain from alcohol. Monitor LFT outpatient with PCP. Also strongly advised to avoid Tylenol and ibuprofen until seen by PCP. Omeprazole 40 mg q.d. Monitor CBC outpatient Needs to follow up with GI Dr. suarez 's office outpatient in 6-8 weeks. Above management discussed with the patient detail length he understand and in agreement with the above plan, time spent 50 minute Time Attestation Total time managing care of this patient today: 50 mintues. Discharge Coordination Time (in mins): 50 minute Quality: Safe Use of Opioids Does Pt have an Active Cancer Diagnosis on the Problem List?: No Quality: Stroke Does the patient have a stroke diagnosis?: No Physical Exam Exam: Exam: Appearance: Alert.? Oriented X3.? Tongue bite area is healing, speaking normally. cvs: rrr, [id number] , no murmur res: clear to auscultation ,no rhonchii or wheezing abd: no rebound or guarding ,nt, bs present. ext pulses present , no cyanosis. neuro: axo3 , nonfocal. Vital Signs: Vital Signs: Last Vital Signs Temp 97.0 F 06/09/25 15:22 Pulse 98 06/09/25 15:22 Resp 16 06/09/25 15:22 BP 143/86 H 06/09/25 15:22 Pulse Ox 98 06/09/25 15:22 O2 Del Method Room Air 06/09/25 15:22 O2 Flow Rate 3 06/07/25 22:06 BMI result Body Mass Index 27.3 DS: Data Data Completed and Pending Labs on day of discharge: Laboratory Results - last 24 hr 06/08/25 06/08/25 06/09/25 18:17 23:12 06:08 WBC RBC Hgb 14.4 Hct 41.7 L MCV MCH MCHC RDW Plt Count MPV Absolute Nucleated RBC Nucleated RBC % (auto) Sodium Potassium Chloride Carbon Dioxide Anion Gap BUN Creatinine Estim Creat Clear Calc Estimated GFR POC Glucose 93 93 Random Glucose Calcium 06/09/25 09:11 WBC 8.7 RBC 4.87 Hgb 15.1 Hct 44.5 MCV 91.4 MCH 31.0 MCHC 33.9 RDW 12.8 Plt Count 223 MPV 9.3 L Absolute Nucleated RBC 0.000 Nucleated RBC % (auto) 0.0 Sodium 137 Potassium 4.2 D Chloride 105 Carbon Dioxide 24 Anion Gap 12 BUN 3 L Creatinine 0.71 Estim Creat Clear Calc 169.3 Estimated GFR > 60 POC Glucose Random Glucose 118 H Calcium 9.1 D Preliminary micro results at discharge 06/08/25 01:32 Blood Culture - Preliminary Blood - Venous No growth after 24 hours. 06/08/25 01:32 Blood Culture - Preliminary Blood - Venous No growth after 24 hours. Additional Comments Additional comments: ct abd:No acute findings in the abdomen/pelvis. Bilateral lower lobe infiltrates. Nonemergent/incidental findings abov Discharge Plan Discharge Anticipated Discharge Date/Time: 06/09/25 16:24 Patient Disposition: Home, Self-Care Discharge Diagnosis: Possible alcoholic gastritis , alcohol withdrawal seizure. Referrals: Jessie Alas MD [Primary Care Provider, Internal Medicine] - 1 Week Georgia Suarez MD [Physician, Gastroenterology] - 6 Weeks Discharge Medications: New omeprazole 40 mg capsule,delayed release(DR/EC) 40 mg PO DAILY Qty: 90 0RF nicotine 7 mg/24 hr Patch 24 Hour 7 mg transdermal DAILY Qty: 14 0RF thiamine HCl (vitamin B1) 100 mg capsule 100 mg PO DAILY Qty: 30 0RF amoxicillin-pot clavulanate 875-125 mg Tablet 1 tab PO Q12H Qty: 13 0RF Discontinued acetaminophen [Tylenol] 325 mg Tablet 650 mg PO Q4H PRN (Reason: Pain) ibuprofen 200 mg Tablet 200 mg PO Q6H PRN (Reason: Pain) Patient Comments: Per pt and father at bedside, pt was taking 800mg Q1H for ~6-7 hours on Sunday (06/06). Discharge Orders: Discharge Order (Routine); Ordered 06/09/25 Ordered By: Aubrey Valdez Diet: Advance to usual diet Activity on Discharge: As tolerated Stand Alone Forms: Patient Portal Discharge page Print Language: Uruguayan Other Ambulatory Orders: Complete Blood Count no Diff (Routine) Timeframe: 1 Week Facility: [facility] - Location: Laboratory Ordered By: Aubrey Valdez Comprehensive Met. Panel (Routine) Timeframe: 1 Week Facility: [facility] - Location: Laboratory Ordered By: Aubrey Valdez Care Plan Goals: complete augmentin 875 mg po bid for 7days , repeat chest imaging in 3-4 weeks to see resolution of pneumonia Patient was strongly advised to abstain from alcohol. Monitor LFT outpatient with PCP. Also strongly advised to avoid Tylenol and ibuprofen until seen by PCP. Omeprazole 40 mg q.d. Monitor CBC outpatient Needs to follow up with GI Dr. suarez 's office outpatient in 6-8 weeks. Health Concerns: As above. Plan of Treatment: As above. Assessment: As above. Discharge Date/Time: 06/09/25 17:09
--- NOTE | 2025-06-09 17:31 | MHC.RECOVRN ---
Late Entry: Addiction Consult received for pt admitted with alcohol withdrawal and witnessed seizure Recovery evaluation completed. Please see for additional details.? The patient agreed to start Naltrexone for AUD and will utilize walk-in hours at [facility] for intake appt. Pt declines needs for further intervention or out pt appt for [facility] treatment at this time.? Pt provided ACS team contact information for questions or concerns.? ACS team available as needed for ongoing support
== END 2025-06-09 17:00 | disposition home or self-care (01) | DRG 775 ==
LOC: HO.ED 06-08 01:19 → HO.EDOVER 06-08 01:34 → HO.IMC 06-08 17:06
PROVIDERS: Admitting Provider Family Medicine; Emergency Provider Emergency Medicine Emergency Medical Services; PCP Internal Medicine; Visit Provider Internal Medicine
DX: F10.939 Alcohol use, unspecified with withdrawal, unspecified (principal); R56.9 Unspecified convulsions; K29.21 Alcoholic gastritis with bleeding; K08.89 Other specified disorders of teeth and supporting structures; T39.311A Poisoning by propionic acid derivatives, accidental (unintentional), initial encounter; F90.9 Attention-deficit hyperactivity disorder, unspecified type; Z20.822 Contact with and (suspected) exposure to COVID-19; Z63.4 Disappearance and death of family member; Z79.899 Other long term (current) drug therapy
CPT/HCPCS: 36415; 70450; 72125; 74177; 80048; 80053; 80143; 80179; 80307; 82947; 83605; 83735; 85014; 85018; 85025; 85027; 87040; 87502; 87635; 93005; 99222; 99285; J0456; J0696; J2470; J2560; J3411; Q9967; S9485

== ENCOUNTER → 2025-06-07 20:01 | Outpatient (BNV) | payer OTHER, SELFPAY | PROVIDERS: Admitting Provider Family Medicine; Emergency Provider Emergency Medicine Emergency Medical Services; PCP Internal Medicine; Visit Provider Internal Medicine Cardiovascular Disease | DX: R00.0 Tachycardia, unspecified (principal) | CPT/HCPCS: 93010 ==

== ENCOUNTER → 2025-06-07 21:31 | Outpatient (BNV) | payer OTHER, SELFPAY | PROVIDERS: Admitting Provider Family Medicine; Emergency Provider Emergency Medicine Emergency Medical Services; PCP Internal Medicine; Visit Provider Radiology Diagnostic Radiology | DX: R10.9 Unspecified abdominal pain (principal); R91.8 Other nonspecific abnormal finding of lung field; R56.9 Unspecified convulsions | CPT/HCPCS: 70450; 72125; 74177 ==

== ENCOUNTER → 2025-06-08 01:29 | Outpatient (BNV) | payer OTHER, SELFPAY | PROVIDERS: Admitting Provider Family Medicine; Emergency Provider Emergency Medicine Emergency Medical Services; PCP Internal Medicine; Visit Provider Internal Medicine | DX: F10.90 Alcohol use, unspecified, uncomplicated (principal); F10.939 Alcohol use, unspecified with withdrawal, unspecified; R56.9 Unspecified convulsions; K92.0 Hematemesis | CPT/HCPCS: 99222 ==

== ENCOUNTER → 2025-06-08 01:29 | Outpatient (BNV) | payer OTHER, SELFPAY | PROVIDERS: Admitting Provider Family Medicine; Emergency Provider Emergency Medicine Emergency Medical Services; PCP Internal Medicine; Visit Provider Nurse Practitioner Psychiatric/Mental Health | DX: F10.90 Alcohol use, unspecified, uncomplicated (principal) | CPT/HCPCS: 99231; 99232 ==

== ENCOUNTER → 2025-06-08 01:29 | Outpatient (BNV) | payer OTHER, SELFPAY | PROVIDERS: Admitting Provider Family Medicine; Emergency Provider Emergency Medicine Emergency Medical Services; PCP Internal Medicine; Visit Provider Family Medicine | DX: F10.939 Alcohol use, unspecified with withdrawal, unspecified (principal); R56.9 Unspecified convulsions | CPT/HCPCS: 99222; 99239; 99499 ==

== ENCOUNTER 2025-06-22 15:03 | Outpatient (AMB) | payer OTHER, SELFPAY ==
--- NOTE | 2025-06-22 15:13 | MHC.PC.OV ---
Vital Signs 06/22/25 15:17 Height 5 ft 10.67 in Weight 190 lb 8 oz BMI 26.8 BP 140/100 H Blood Pressure Location Lt brachial Position Sitting Pulse 74 Pulse Source Pulse Oximeter Temp 97.5 F Temp Source Temporal Artery Scan Pulse Oximetry (%) 98 Oxygen Delivery Method Room Air Intake Visit Reasons: establish care Intake Note: Patient is a new patient here to establish care for Alcohol use disorder, ADHD, Anxiety, Depression, Seizure. Transferring care from Dr Garza ([facility]) . Medical records have been requested and have not received. Dynamite Reclaimer Required: No [employer] Consultant: Not Required per policy Accompanied by: Self / Same As Patient Allergies No Known Allergies Allergy (Verified 06/22/25 15:17) Medication List - Last Reconciled 06/22/25 by Sharita Boo MD naltrexone 50 mg PO DAILY nicotine 7 mg transdermal DAILY omeprazole 40 mg PO DAILY thiamine HCl (vitamin B1) 100 mg PO DAILY Tobacco use date assessed: 06/22/25 Dental Screening Dental Screen Date: 06/22/25 Did you have a dental visit in the last 12 months?: No Did you have a dental problem in the last 6 months where you did not have access to dental care?: No Was dental information given to patient?: Patient has dentist HPI HPI Comments History of Present Illness Details The patient is a 24 year old male with PMH of ADHD, AUD c/b alcohol withdrawal, nicotine dependence, Cannabis use disorder presenting to establish primary care and for follow-up after a recent hospitalization. He was hospitalized two weeks ago for two days for an alcohol-induced seizure that occurred after he attempted to abruptly stop drinking. Prior to this, he was consuming 10-12 mini-bottles of alcohol daily following a recent relationship breakup. During the seizure, he aspirated vomitus, which required a course of antibiotics (augumentin) that he has now completed. His hospital course included IV PPI for gastritis, phenobarbital, thiamine, folic acid, and IV fluids. Hospital workup included a negative CT of the head and cervical spine, and a CT of the abdomen which showed findings in the liver and bilateral lower lung lobes infiltrates. The patient is currently taking naltrexone for alcohol cravings, which he reports is helping immensely, and also vitamin B. He reports smoking 2-3 cigarettes daily and using marijuana occasionally, which he finds helps reduce alcohol cravings. Past surgical history is significant for a tongue procedure at age 3. Family history is notable for a father with a history of prescription pill substance abuse, who is now 6 years sober. REPLACED BY [facility] Medical History ADHD Depression Anxiety Panic attack Surgical History History of tonsillectomy Family History Other Substance use disorder Social History Household Members: Family Housing: House Alcohol intake: current Alcohol intake frequency: a few times a month Alcohol type: beer and hard liquor Patient Tobacco Use Status: Current everyday Tobacco user Tobacco use type: Cigarette Cigarette Packs Per Day: 0.25 Cigarettes Per Day: 3 Years Smoked: 7 e-Cigarette/Vaping Use: Currently Using Second Hand Smoke Exposure: Yes Substance Use Type: Marijuana service: No Current occupational status: employed Cognitive needs: No Hearing needs: No Vision needs: Yes (Contacts, glasses) Questionnaire PHQ-9 Over the last 2 weeks, how often have you been bothered by any of the following problems? 1. Little interest or pleasure in doing things: not at all 2. Feeling down, depressed, or hopeless: not at all 3. Trouble falling or staying asleep, or sleeping too much: not at all 4. Feeling tired or having little energy: not at all 5. Poor appetite or overeating: not at all 6. Feeling bad about yourself - or that you are a failure or have let yourself or your family down: not at all 7. Trouble concentrating on things, such as reading the newspaper or watching television: not at all 8. Moving or speaking so slowly that other people could have noticed. Or the opposite - being so fidgety or restless that you have been moving around a lot more than usual: not at all 9. Thoughts that you would be better off or of hurting yourself in some way: not at all Total score: 0 Depression Screening Interpretation: Negative Depression Screening Done: Yes Source: Developed by Drs. Fidel Schulz, Audie Quinones and colleagues, with an educational rickey from [employer]. Thrive Questionnaire Date Thrive assessed: 06/08/25 I am a: Patient What is your living situation today?: I have a steady place to live Within the past 12 months, did the food you bought not last and you didn't have the money to get more?: Never true Within the past 12 months, did you worry whether your food would run out before you got money to buy more?: Never true Do you have trouble paying for medicines?: No Do you have trouble getting transportation to medical appointments?: No Do you have trouble paying your heating and electricity bill?: No Do you have trouble taking care of your child, family member or friend?: No Do you have trouble with day-to-day activities such as bathing, preparing meals, shopping, managing finances, etc.?: No Are you currently unemployed and looking for a job?: No Are you interested in more education?: No Please select the resources that you would like help with: None Currently or been in a relationship where the following occur: No concerns reported THRIVE Score: 0 AUDIT C Alcohol Use Questionnaire (AUDIT-C) 1. How often do you have a drink containing alcohol?: Never Total Score: 0 ESMER-7 AMB Questionnaire ESMER-7 Feeling nervous, anxious, or on edge: 0 = Not at all Not being able to stop or control worryin = Not at all Worrying too much about different things: 0 = Not at all Trouble relaxin = Not at all Being so restless that it is hard to sit still: 0 = Not at all Becoming easily annoyed or irritable: 0 = Not at all Feeling afraid as if something awful might happen: 0 = Not at all Total ESMER-7 score (0-4 normal; 5-9 mild; 10-14 moderate; 15-21 severe): 0 Source: Developed by Drs. Fidel Schulz, Audie Quinones and colleagues, with an educational rickey from [employer]. Review of Systems Const Details: As per HPI. Physical exam (Primary Care) Vital Signs: Last Vital Signs Temp 97.5 F 06/22/25 15:17 Pulse 74 06/22/25 15:17 BP 140/100 H 06/22/25 15:17 Pulse Ox 98 06/22/25 15:17 Oxygen Delivery Method Room Air 06/22/25 15:17 BMI result Body Mass Index 26.8 Tobacco/Smoking Status: Tobacco use Status Tobacco use date assessed 06/22/25 06/22/25 15:29 Patient Tobacco Use Status Current everyday Tobacco 06/22/25 15:29 Tobacco use type Cigarette 06/22/25 15:29 e-Cigarette/Vaping Use Currently Using 06/22/25 15:29 PHQ-9: PHQ-9 Score PHQ-9: Total score 0 06/22/25 15:29 Depression Screening Interpretation: Negative Thrive Assessment: Date of Thrive Assessment Date Thrive assessed 06/08/25 06/22/25 15:29 Currently or been in a relationship where the following occur: No concerns reported Const Other: Pertinent findings are in BOLD GENERAL APPEARANCE NAD, activity normal for age, well developed/ well nourished, no cyanosis, pallor, or diaphoresis. EYES lids/conjunctiva normal. EARS/NOSE/THROAT Mucous membranes moist, nares normal, lips/teeth normal uvula midline without oral pharyngeal erythema, exudate or swelling TMs normal bilaterally. No lymphangitis/lymphedema. HEAD/NECK normocephalic atraumatic, no facial trauma, neck is supple. RESPIRATORY respiratory effort normal, speaks in full sentences, no tripod position, no accessory muscle use. Lungs clear to auscultation without rhonchi, wheezes, rales CARDIAC Regular rate and rhythm, no edema. ABDOMINAL Soft, ND/NT. No evidence of fluid wave. No pulsatile masses on exam, rebound tenderness, Osorio sign or pain over Mcburney's point. MUSCLES/EXTREMITIES No abnormal range of motion, no swelling. SKIN Warm, pink and dry. No rashes, dermatoses, petechiae or lesions. NEUROLOGICAL Speech is clear and appropriate. Normal level of consciousness. Gait and coordination are normal. 5/5 strength in all extremities. PSYCH Normal mood and affect. Judgement/competence is appropriate Coding Level of Care Code New Pt Level 4 (93864) Diagnoses Alcohol use disorder F10.90 Tobacco use disorder F17.200 Marijuana abuse F12.10 Time Spent (min) 45 Assessment & Plan Assessment & Plan (1) Alcohol use disorder: Code(s): F10.90 - Alcohol use, unspecified, uncomplicated Category: Medical Plan: - The patient will continue taking naltrexone for alcohol cravings. - A 3-month refill for naltrexone has been provided. - The patient will be referred to an addiction medicine specialist or psychiatrist for medication management and long-term planning regarding naltrexone. - A prescription for folic acid 1 mg daily was sent to the pharmacy. - The patient will continue taking thiamine. - The patient was extensively counseled on the dangers of alcohol use and the benefits of sobriety. (2) Tobacco use disorder: Code(s): F17.200 - Nicotine dependence, unspecified, uncomplicated Category: Medical Plan: - The patient's plan to use nicotine patches was acknowledged. - Advised the patient to focus on abstaining from alcohol first before attempting to quit smoking to avoid being overwhelmed. (3) Marijuana abuse: Code(s): F12.10 - Cannabis abuse, uncomplicated Category: Medical Plan: - The patient's use of marijuana as a strategy to avoid alcohol was noted. - Counseled the patient on choosing less harmful substances if cravings are present, but strongly encouraged working towards a sober lifestyle. Plan I had a detailed discussion with the patient regarding his recent hospitalization for an alcohol withdrawal seizure. We discussed the plan to continue naltrexone, and I provided a 3-month refill. I explained that due to my limited expertise in managing naltrexone for alcohol use disorder, I am referring him to an Addiction Medicine specialist or psychiatrist for expert management and long-term planning, with which he agreed. I also prescribed folic acid 1mg daily. We discussed his use of multiple substances, and I advised him to prioritize quitting alcohol, as it is the most dangerous, and to not overwhelm himself by trying to stop everything at once. I provided extensive counseling on harm reduction, the dangers of substance use, the importance of social support, and the benefits of working toward a sober lifestyle. I reassured him that I am on his side and encouraged open communication about any relapses or struggles. Orders: Referrals Addiction Medicine Referral F10.90 - Alcohol use, unspecified, uncomplicated Medications: New folic acid 1 mg PO DAILY 60 tabs 3RF alcohol use disorder F10.90 - Alcohol use, unspecified, uncomplicated Refilled naltrexone Take 1/2 tab daily for 3 days, then increase to one tab daily 50 mg PO DAILY 30 tabs 3RF
[2025-06-22 15:17] VITALS: BP 140/100; PULSE 74; TEMP 36.4; O2SAT 98; BMI 26.8
== END 2025-06-22 16:00 | disposition home or self-care (01) ==
LOC: HO.HMCH 15:04
PROVIDERS: PCP Internal Medicine; Visit Provider Internal Medicine
DX: F10.90 Alcohol use, unspecified, uncomplicated (principal); F17.200 Nicotine dependence, unspecified, uncomplicated; F12.10 Cannabis abuse, uncomplicated